=== PATIENT | male | born 1965 | race Caucasian/White ===

== ENCOUNTER 2017-08-03 01:58 | Inpatient (IN) | payer OTHER ==
[2017-08-03] MEDS ORDERED: Zolpidem Tartrate 5 MG TAB PO PRN (05:16)
[2017-08-03] MEDS ORDERED: Loperamide HCl 2 MG CAP PO PRN (05:16)
[2017-08-03] MEDS ORDERED: Ondansetron ODT 4 MG TAB PO PRN (05:16)
[2017-08-03] MEDS ORDERED: Sodium Chloride 0.65% Nasal 44 ML BOT EA NARE PRN (05:16)
[2017-08-03] MEDS ORDERED: Mag-Al 1200 mg/1200 mg/30 ML UDCUP PO PRN (05:16)
[2017-08-03] MEDS ORDERED: Dextrose 50% Abboject 50 ML SYRINGE SLOW IVP PRN (05:16)
[2017-08-03] MEDS ORDERED: Labetalol HCl 100 MG/20 ML VIAL SLOW IVP PRN (05:16)
[2017-08-03] MEDS ORDERED: HumaLOG 300 UNITS/3 ML VIAL SC PRN ×2 (05:16)
[2017-08-03] MEDS ORDERED: Hydrocerin (Eucerin) Cream 120 gm Jar TOP PRN (05:16)
[2017-08-03] MEDS ORDERED: Artificial Tears 18 DROP/0.9 ML EA EYE PRN (05:16)
[2017-08-03] MEDS ORDERED: Senokot 8.6 MG TAB PO PRN (05:16)
[2017-08-03] MEDS ORDERED: Milk Of Magnesia 30 ML UDCUP PO PRN (05:16)
[2017-08-03] MEDS ORDERED: Nitroglycerin 0.4 MG TAB (25 Tab Bottle) SL PRN (05:16)
[2017-08-03] MEDS ORDERED: Ondansetron HCl/PF 4 MG/2 ML Vial IVP PRN (05:16)
[2017-08-03] MEDS ORDERED: HYDROcodone/Acetaminophen 5/325 mg Tablet PO PRN (05:16)
[2017-08-03] MEDS ORDERED: Loratadine 10 MG TAB PO PRN (05:16)
[2017-08-03] MEDS ORDERED: Lorazepam 1 MG TAB PO PRN (05:16)
[2017-08-03] MEDS ORDERED: Dextrose 5% in Water 1,000 ML IV PRN (05:16)
[2017-08-03] MEDS ORDERED: Acetaminophen 325 MG TAB PO PRN (05:16)
[2017-08-03] MEDS ORDERED: Diabetic Tussin 200 MG/10 ML UDCUP PO PRN (05:16)
[2017-08-03] MEDS: Nitroglycerin 2% Ointment 1 INCH/1 GM Packet TOP SCH ×3 (05:52→21:27)
[2017-08-03 07:17] LABS: Troponin I 0.993 ng/mL (< 0.028)
--- NOTE | 2017-08-03 07:24 | HP ---
PRIMARY CARE PHYSICIAN: Dr. Galeano. REASON FOR ADMISSION: Unstable angina (transfer from [facility] emergency room). HISTORY OF PRESENT ILLNESS: A 51-year-old male who has history of diabetes type 2 on metformin therapy, who was transferred from [facility] for chest pain. 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 After that, he walked around, his pain subsided and he went to his home and he slept around 10:00 and all of suddenly he woke up around 11:00 with acute onset of chest pain, which was substernal in location, pressure-like sensation as if somebody seated on his chest. He was feeling nausea and he had episode of vomiting with diaphoresis. He rested in his chair, but his pain was not subsiding and he was feeling more worse and that is why he drove himself to [facility]. At [facility], the patient was given Lopressor 5 mg x3. Lovenox 1 mg per kg IV fluid, aspirin, and subsequently nitroglycerin drip was started. After that, patient was feeling much better. His EKG was unremarkable without any ST elevation, but his troponin was abnormal with indeterminate troponin. This patient was subsequently transferred to our hospital for higher level of care. This patient has significant family history of coronary artery disease. He reports that he was diagnosed with diabetes about a year ago and he was kept on metformin. He also saw his primary care physician recently and he was doing overall well. This patient is not doing any strenuous physical activity. 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 He denies any chest discomfort relation with respiration. He denies any relation of chest pain with food. PAST MEDICAL HISTORY: Diabetes type 2 on metformin therapy, diagnosed in 2015. History of diverticulitis and subsequent perforation required surgery. Benign enlargement of prostate. PAST SURGICAL HISTORY: Diverticulitis with perforation required partial colectomy and colostomy, subsequently colostomy required reanastomosis. The patient also had incisional hernia required repair. The patient also required cystoscopy for catheter-induced trauma. PAST PSYCHIATRIC HISTORY: Anxiety disorder. SOCIAL HISTORY: The patient lives at home in [place]. He has farm house in [place]. He denies any tobacco, alcohol or illicit drug abuse. 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 FAMILY HISTORY: Positive for coronary artery disease. The patient's father from heart attack by age of 62. One brother also had heart attack by age of 60. Cousin brother also had heart attack. Mother also diagnosed with coronary artery disease required CABG by age of 90. CURRENT HOME MEDICATIONS: Metformin and clofran, dose is not known. The patient did not bring his home medication. ALLERGIES: No known drug allergies. EMERGENCY ROOM COURSE: The patient is given Ativan 0.5 mg, Lopressor 5 mg IV push x3, aspirin 324 mg, IV fluid, and Lovenox 1 mg per kg, nitroglycerin drip was started at [facility]. REVIEW OF SYSTEMS: The following complete review of systems was negative, unless otherwise mentioned in the HPI or below: Constitutional: Weight loss or gain, ability to conduct usual activities. Skin: Rash, itching. Eyes: Double vision, pain. ENT/Mouth: Nose bleeding, neck stiffness, pain, tenderness. Cardiovascular: Palpitations, dyspnea on exertion, orthopnea. Respiratory: Shortness of breath, wheezing, cough, hemoptysis, fever or night sweats. Gastrointestinal: Poor appetite, abdominal pain, heartburn, nausea, vomiting, constipation, or diarrhea. Genitourinary: Urgency, frequency, dysuria, nocturia. Musculoskeletal: Pain, swelling. Neurologic/Psychiatric: Anxiety, depression. Allergy/Immunologic: Skin rash, bleeding tendency. Please see my HPI for pertinent positives and negatives. All other review of system reviewed and negative except as mentioned in the HPI. PHYSICAL EXAMINATION: VITAL SIGNS: Currently, blood pressure 141/72, pulse 100, respiratory rate 20, temperature 97.8, saturation 95% on room air, weight 103.4 kilograms. GENERAL: The patient is currently alert, awake, no obvious acute distress. HEENT: Head: Normocephalic, atraumatic. Eyes: Pupils round, reactive to light. Extraocular muscles intact. ENT: Oropharynx within normal limits. Moist mucous membranes. No oral lesions. No pharyngeal erythema, no exudate. NECK: Supple. Range of motion is normal. No meningeal signs of irritation. LUNGS: Clear to auscultation without any rhonchi or rales. CARDIAC: S1, S2 regular without any murmur. ABDOMEN: Soft, bowel sounds present. Surgical scar present. No peritoneal sign, no guarding, no rigidity, no rebound. BACK EXAMINATION: Unremarkable, no CVA tenderness. EXTREMITIES: Upper extremities: Passive movement of all joints are normal. Lower extremities: No edema. Good peripheral pulsation. No calf tenderness. PSYCHIATRIC: Normal affect. SKIN: No skin rash. NEUROLOGIC: Nonfocal examination. HEMATOLOGIC SYSTEM: No lymphadenopathy. SIGNIFICANT LABS: EKG based on my review, sinus tachycardia, nonspecific ST-T changes. Chest x-ray based on my review, no acute cardiopulmonary process. CBC: WBC 9.7, hemoglobin 18.5, platelets 160. BMP: Sodium 143, potassium 4.0 , chloride 109, carbon dioxide 20, BUN 22, creatinine 0.94, glucose 140, calcium 9.5. LFT: AST 19, ALT 30, alkaline phosphatase 61, albumin 4.5, lipase 79, CK-MB 2.2, troponin I 0.079. ASSESSMENT AND PLAN: 1. Unstable angina. This patient has underlying risk factors for coronary artery disease, his age, family history and diabetes type 2. He has unknown cholesterol status and he has new hypertension as well. He had chest pain 2 times 2 hours apart, first episode lasted for about 10 minutes and second episode associated with diaphoresis, nausea, vomiting, and heaviness. He has nonspecific ST-T changes and he has elevated troponin. Based on all of these criteria, the patient has very high risk status. He has a high MANUEL score. At this point, the patient clinically meets unstable angina criteria. We will keep this patient on telemetry floor. We will continue to treat him with Lovenox 1 mg per kg subcu twice daily. We will obtain echocardiography. We will consult Cardiology. This patient may need cardiac catheterization. We will monitor on telemetry floor. We will continue aspirin 325 mg p.o. daily, metoprolol 25 mg p.o. twice daily, lisinopril 5 mg p.o. daily, Lipitor 40 mg p.o. at bedtime. We will check lipid profile for risk stratification. We will also check hemoglobin A1c. 2. Diabetes type 2. Check hemoglobin A1c and continue with insulin as per sliding scale protocol. We will hold on metformin therapy. 3. Obesity. Dietary education given, weight loss education given. 4. History of benign enlargement of prostate. The patient is not on any specific treatment at this point. 5. Deep venous thrombosis prophylaxis. The patient is already on full dose of Lovenox therapy. 6. Gastrointestinal prophylaxis. Pepcid 20 mg p.o. b.i.d. 7. Code status: The patient is FULL CODE. The patient does not have a surrogate decision maker. Disposition plan based on clinical course. We are expecting patient's stay in the hospital more than 2 midnights. Plan of care discussed with the patient in detail. MTDD
[2017-08-03] MEDS ORDERED: Enoxaparin Sodium 100 MG/ML SYRINGE SC SCH ×2 (09:00→21:00)
[2017-08-03 09:38] LABS: Hematocrit 47.3 % (42.0-52.0)
[2017-08-03] MEDS ORDERED: Communication Order-Pharmacy FS SCH ×2 (10:15→20:15)
--- NOTE | 2017-08-03 10:30 | CON ---
DATE OF CONSULTATION: 08/03/2017 DATE OF ADMISSION: 08/03/2017 CARDIOLOGY CONSULTATION INDICATION FOR CONSULTATION: A 51-year-old patient with a non-ST segment elevation myocardial infar ction. HISTORY OF PRESENT ILLNESS: This is a very pleasant 51-year-old gentleman with no history of previo us cardiac disease, does have a history of diabetes which was diagnosed about a year ago. He has be en on metformin therapy and diet control. He has been doing quite well. His hemoglobin A1c has bee n under good control. He was out yesterday some time shooting for wild hogs. After he shot the [employer], he started developing chest pain. It lasted about 10 minutes. He went home. He was soon not quite himself. He then went to bed around 10:00 and he woke up around 11:00 with chest pain which h e described as feeling heavy pressure radiating to the jaw. He became diaphoretic, had some nausea and vomiting. He presented to the emergency room. EKG showed some nonspecific changes with T-wave abnormalities in the lateral leads with ST segment depression, no ST segment elevation was noted. H is cardiac enzymes were indeterminate, but originally was 1.036, now increased up to 0.993. His ad[address] st pain is gone. He is feeling much better. The EKG has improved. In the emergency room, he was g iven Lopressor, aspirin and Lovenox. He also was given Ativan and he was transferred to our [facility] for further evaluation and treatment. He remained stable. His vital signs are stable and he has no chest pain at this time. PAST MEDICAL HISTORY: Significant for type 2 diabetes as noted above. He is on metformin and diet control. He had a history of diverticulitis and multiple surgeries due to perforation. He has had hernia repairs. He has had a history of anxiety, history of benign prostatic hypertrophy. He has h ad cystoscopy and nephrolithiasis. He has also had lithotripsy. He has a history of anxiety. SOCIAL HISTORY: He lives in [place] usually. 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 He denies any alcohol or tobacco abuse. 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 ALLERGIES: He has no known drug allergies. MEDICATIONS: Prior to admission included metformin 500 mg b.i.d., atorvastatin 40 mg daily, and cora nazepam 1 mg b.i.d., aspirin, Lipitor, Lovenox, Pepcid, metoprolol, and nitroglycerin paste. REVIEW OF SYSTEMS: A 12-point review of systems is unremarkable except what is noted in the history of present illness. He denies any HEENT complaints, visual changes or hearing loss. He had no pul monary complaints such as asthma, emphysema or bronchitis. No recent coughs, cold, or pneumonia. G ASTROINTESTINAL: He denies any significant nausea, vomiting or diarrhea. He only had some nausea a nd vomiting earlier this morning and last night with his associated chest discomfort, no hematemesis . He has not noticed any blood in stool. : Denies any dysuria, polyuria, or hematuria. MUSCULO SKELETAL: No complaints of claudication type symptoms or edema. NEUROLOGIC: No history of seizure s or syncope. PHYSICAL EXAMINATION: GENERAL: Reveals a well-developed, well-nourished gentleman. VITAL SIGNS: Blood pressure is 102/56, heart rate 85 and regular. He is afebrile, respiratory rate 16, O2 saturation 96%. HEENT: Shows head to be normocephalic and atraumatic. Carotid pulses are present. There were no b ruits. No JVD. The thyroid is not enlarged. Oral mucosa was pink and moist. CHEST: Clear to auscultation. There were no rales, rhonchi or wheezing noted. CARDIOVASCULAR: Reveals a regular rate and rhythm with normal S1, S2, no S3, S4. There were no sig nificant murmurs, heaves, thrills, bruits or rubs noted. ABDOMEN: Obese with positive bowel sounds and well-healed surgical incisions. There is no palpable masses or tenderness. Femoral pulses are present. EXTREMITIES: Showed no clubbing, cyanosis or edema. Pedal pulses are also present. NEUROLOGIC: The patient appears to be intact. SKIN: Warm and dry. LABORATORY DATA: As noted above, troponin I last checked was 0.993 with MB of 8.3 compatible with a non-ST segment elevation myocardial infarction. Creatinine 0.94, hemoglobin 18.5. IMPRESSION AND PLAN: 1. Non-ST segment elevation myocardial infarction. Given the patient's history and risk factors, E KG changes and positive enzymes, he will be advised to undergo cardiac catheterization. I did expla in the procedure and the risks to him to include bleeding, infection, possibly a myocardial infarcti on, cerebrovascular accident, renal insufficiency, allergic contrast reaction, and the possibility o f . He understands and agrees to proceed. We will plan for cardiac catheterization tomorrow u nless the patient becomes unstable today. 2. Diabetes. This appears to be under relatively good control at this time and he will continue hi s metformin. We will hold this after the cardiac catheterization tomorrow or may hold tonight also to decrease the risk of contrast nephropathy associated with his diabetes. 3. History of anxiety, he will continue his present medications with Ativan as needed. 4. Hypercholesterolemia. He will continue on his Lipitor.
[2017-08-03] MEDS: Aspirin 325 MG TAB PO SCH (11:20)
[2017-08-03] MEDS: Metoprolol Tartrate 25 MG TAB PO SCH ×2 (11:20→21:25)
[2017-08-03] MEDS: Famotidine 20 MG TAB PO SCH ×2 (11:20→21:25)
--- NOTE | 2017-08-03 12:05 | PDOC.PN ---
- Subjective Encounter Start Date: 08/03/17 Encounter Start Time: 09:20 Pt seen for followup re: NSTEMI. Denies chest pain, shortness of breath, fevers or chills. - Objective Resuscitation Status: Resuscitation Status FULL:Full Resuscitation MAR Reviewed: Yes Vital Signs & Weight: Vital Signs (12 hours) Temp Pulse Resp BP Pulse Ox 08/03/17 11:22 97.5 F L 85 16 105/68 96 08/03/17 08:00 97.5 F L 85 16 102/56 L 96 08/03/17 05:16 96.3 F L 90 20 97 08/03/17 05:06 96.3 F L 90 20 142/76 H 97 Weight Weight 227 lb 11.2 oz I&O: 08/02/17 08/03/17 08/04/17 06:59 06:59 06:59 Intake Total 360 Balance 360 Result Diagrams: 08/03/17 06:17 08/03/17 03:13 Additional Labs: Accuchecks 08/03/17 08/03/17 10:36 05:57 POC Glucose 116 H 104 EKG Reviewed by me: Yes (Tele: enmanuel lacey) Phys Exam - Physical Examination Constitutional: NAD HEENT: moist MMs, oral pharynx no lesions Neck: supple, full ROM Respiratory: no wheezing, no rales, no rhonchi, clear to auscultation bilateral Cardiovascular: RRR, no rub Gastrointestinal: soft, non-tender, no distention, positive bowel sounds Musculoskeletal: no edema, pulses present Neurological: non-focal, normal sensation, moves all 4 limbs Lymphatic: no nodes Psychiatric: normal affect, A&O x 3 Skin: no rash, normal turgor, cap refill <2 seconds Dx/Plan (1) NSTEMI (non-ST elevated myocardial infarction) Code(s): I21.4 - NON-ST ELEVATION (NSTEMI) MYOCARDIAL INFARCTION Status: Acute (2) DM2 (diabetes mellitus, type 2) Status: Chronic (3) Dyslipidemia Code(s): E78.5 - HYPERLIPIDEMIA, UNSPECIFIED Status: Chronic (4) Anxiety disorder Code(s): F41.9 - ANXIETY DISORDER, UNSPECIFIED Status: Chronic (5) BPH (benign prostatic hyperplasia) Code(s): N40.0 - BENIGN PROSTATIC HYPERPLASIA WITHOUT LOWER URINRY TRACT SYMP Status: Chronic - Plan DVT proph w/lovenox * .Continue Lovenox. For cath tomorrow. Hold metformin. Continue insulin sliding scale, statin. Review of Systems - Review of Systems Constitutional: negative: Fever, Chills, Sweats, Weakness, Malaise Respiratory: negative: Cough, Dry, Shortness of Breath, Hemoptysis, SOB with Excertion, Pleuritic Pain, Sputum, Wheezing Cardiovascular: negative: Chest Pain, Palpitations, Orthopnea, Paroxysmal Noc. Dyspnea, Edema, Light Headedness Gastrointestinal: negative: Nausea, Vomiting, Abdominal Pain, Diarrhea, Constipation, Melena, Hematochezia Genitourinary: negative: Dysuria, Frequency, Incontinence, Hematuria, Retention - Medications/Allergies Allergies/Adverse Reactions: Allergies Allergy/AdvReac Type Severity Reaction Status Date / Time No Known Drug Allergies Allergy Verified 08/03/17 05:28 Medications: Current Medications Acetaminophen (Tylenol) 650 mg PO Q4H PRN PRN Reason: Headache/Fever or Pain Hydrocodone Bitart/Acetaminophen ([place] 5/325) 1 tab PO Q4H PRN PRN Reason: Moderate Pain (4-6) Al Hydroxide/Mg Hydroxide (Maalox) 30 ml PO Q6H PRN PRN Reason: Heartburn or Indigestion Artificial Tears (Tears Naturale) 0 drop EA EYE PRN PRN PRN Reason: Dry Eyes Aspirin (Aspirin) 325 mg PO QAM-[facility] Last Admin: 08/03/17 11:20 Dose: 325 mg Atorvastatin Calcium (Lipitor) 40 mg PO HS [facility] Dextrose/Water (Dextrose 50%) 25 gm SLOW IVP PRN PRN PRN Reason: Hypoglycemia Emollient Cream (Hydrocerin Cream) 0 gm TOP BIDPRN PRN PRN Reason: Dry Skin Enoxaparin Sodium (Lovenox) 100 mg SC 0900,2100 [facility] Stop: 08/03/17 23:00 Famotidine (Pepcid) 20 mg PO BID [facility] Last Admin: 08/03/17 11:20 Dose: 20 mg Glucagon (Glucagon) 1 mg IM PRN PRN PRN Reason: Hypoglycemia Guaifenesin (Robitussin Sf) 200 mg PO Q4H PRN PRN Reason: Cough Dextrose/Water (D5w) 1,000 mls @ 0 mls/hr IV .Q0M PRN; As Directed PRN Reason: Hypoglycemia Insulin Human Lispro (Humalog) 0 units SC .MODERATE SLIDING SC PRN PRN Reason: Moderate Correctional Scale Insulin Human Lispro (Humalog) 0 units SC .BEDTIME SLIDING SC PRN PRN Reason: Bedtime Correctional Scale Labetalol HCl (Normodyne) 20 mg SLOW IVP Q4H PRN PRN Reason: Systolic BP > 180 Loperamide HCl (Imodium) 2 mg PO PRN PRN PRN Reason: Diarrhea/Loose Stools Loratadine (Claritin) 10 mg PO DAILYPRN PRN PRN Reason: Sinus Symptoms Lorazepam (Ativan) 1 mg PO Q4H PRN PRN Reason: Anxiety/Agitation Magnesium Hydroxide (Milk Of Magnesium) 30 ml PO DAILYPRN PRN PRN Reason: Constipation Metoprolol Tartrate (Lopressor) 25 mg PO BID [facility] Last Admin: 08/03/17 11:20 Dose: 25 mg Nitroglycerin (Nitro-Bid 2% Ointment) 0.5 inch TOP Q8HR [facility] Last Admin: 08/03/17 05:52 Dose: Not Given Nitroglycerin (Nitrostat) 0.4 mg SL Q5MIN PRN PRN Reason: Chest Pain Ondansetron HCl (Zofran Odt) 4 mg PO Q6H PRN PRN Reason: Nausea/Vomiting Ondansetron HCl (Zofran) 4 mg IVP Q6H PRN PRN Reason: Nausea/Vomiting Senna (Senokot) 2 tab PO HSPRN PRN PRN Reason: Constipation Sodium Chloride ([place] Nasal [place] 0.65%) 0 ml EA NARE QIDPRN PRN PRN Reason: Nasal Congestion Zolpidem Tartrate (Ambien) 5 mg PO HSPRN PRN PRN Reason: Insomnia
[2017-08-03] MEDS: Atorvastatin Calcium 40 MG TAB PO SCH (21:25)
[2017-08-04 05:12] LABS: #Eosinphils 0.1 thou/uL (0.0-0.7); #Lymphocytes 1.7 thou/uL (1.20-3.40); #Monocytes 0.7 thou/uL (0.11-0.59); #Neutrophils 4.6 thou/uL (1.40-6.50); %Basophils 0.7 % (0.0-1.0); %Eosinophils 0.9 % (0.0-10.0); %Lymphocytes 23.6 % (21.0-51.0); %Monocytes 10.1 % (0.0-10.0); Hematocrit 48.8 % (42.0-52.0); Mean Platelet Volume 7.8 fL (7.4-10.4); White Blood Cell (WBC) Count 7.1 thou/uL (4.8-10.8)
[2017-08-04 05:24] LABS: ALT (SGPT) 24 U/L (8-55); AST (SGOT) 28 U/L (5-34); Alkaline Phosphatase 49 U/L (40-150); Anion Gap 12 mmol/L (10-20); BUN (Urea Nitrogen) 13 mg/dL (8.9-20.6); Bilirubin, Total 0.7 mg/dL (0.2-1.2); Calc. Creatinine Clearance 187 mL/min (70-130); Calcium 9.1 mg/dL (7.8-10.44); Carbon Dioxide 24 mmol/L (22-29); Chloride 108 mmol/L (98-107); Cholesterol 160 mg/dl (< 200 Desired); Estimated GFR-MDRD Greater than 90; Globulin 2.9 g/dL (2.4-3.5); LDL Cholesterol, Calculated 94 mg/dL; Protein, Total 6.7 g/dL (6.0-8.3)
[2017-08-04] MEDS: Aspirin 325 MG TAB PO SCH (06:19)
[2017-08-04] MEDS: Famotidine 20 MG TAB PO SCH ×2 (06:19→21:01)
[2017-08-04] MEDS: Nitroglycerin 2% Ointment 1 INCH/1 GM Packet TOP SCH ×3 (06:19→21:01)
[2017-08-04] MEDS: Metoprolol Tartrate 25 MG TAB PO SCH ×2 (06:19→21:01)
[2017-08-04] MEDS ORDERED: Nitroglycerin 100MG/250ML BOT 250 ML ONE (08:07)
[2017-08-04] MEDS ORDERED: Heparin 10,000 UNITS/1 ML VIAL ONE (08:07)
[2017-08-04] MEDS ORDERED: Fentanyl 100 MCG/2 ML VIAL ONE (08:36)
[2017-08-04] MEDS ORDERED: traMADol HCl 50 MG TAB PO PRN (09:38)
[2017-08-04] MEDS ORDERED: Nitroglycerin 0.4 MG TAB (25 Tab Bottle) SL PRN (09:38)
[2017-08-04] MEDS ORDERED: Acetaminophen/Codeine 30-300mg Tablet PO PRN ×2 (09:38)
[2017-08-04] MEDS ORDERED: Sodium Chloride 0.9% 200 ML IV SCH (09:45)
[2017-08-04] MEDS ORDERED: Communication Order-Pharmacy FS SCH (11:17)
[2017-08-04] MEDS ORDERED: Diazepam 5 MG TAB PO PRN (11:17)
--- NOTE | 2017-08-04 11:34 | PDOC.PN ---
- Subjective Encounter Start Date: 08/04/17 Encounter Start Time: 11:00 Pt seen for followup re: NSTEMI. Denies chest pain or shortness of breath. No fevers or chills. Had cath earlier today. - Objective Resuscitation Status: Resuscitation Status FULL:Full Resuscitation MAR Reviewed: Yes Vital Signs & Weight: Vital Signs (12 hours) Temp Pulse Resp BP Pulse Ox 08/04/17 06:55 96.4 F L 81 15 121/63 97 08/04/17 04:00 97.4 F L 77 20 102/64 95 Weight Weight 224 lb 11.2 oz I&O: 08/03/17 08/04/17 08/05/17 06:59 06:59 06:59 Intake Total 360 1280 Output Total 1275 Balance 360 5 Result Diagrams: 08/04/17 04:26 08/04/17 04:26 Additional Labs: Accuchecks 08/04/17 08/03/17 08/03/17 05:53 20:38 16:50 POC Glucose 112 H 119 H 100 EKG Reviewed by me: Yes (Tele; NSR) Phys Exam - Physical Examination Constitutional: NAD HEENT: moist MMs Neck: supple Respiratory: clear to auscultation bilateral Cardiovascular: RRR Musculoskeletal: pulses present Neurological: moves all 4 limbs Psychiatric: normal affect Skin: no rash Dx/Plan (1) NSTEMI (non-ST elevated myocardial infarction) Code(s): I21.4 - NON-ST ELEVATION (NSTEMI) MYOCARDIAL INFARCTION Status: Acute (2) DM2 (diabetes mellitus, type 2) Status: Chronic (3) Dyslipidemia Code(s): E78.5 - HYPERLIPIDEMIA, UNSPECIFIED Status: Chronic (4) Anxiety disorder Code(s): F41.9 - ANXIETY DISORDER, UNSPECIFIED Status: Chronic (5) BPH (benign prostatic hyperplasia) Code(s): N40.0 - BENIGN PROSTATIC HYPERPLASIA WITHOUT LOWER URINRY TRACT SYMP Status: Chronic - Plan * . Pt has multivessel CAD, for urgent CABG. Continue insulin sliding scale. Continue statin. Review of Systems - Review of Systems Constitutional: negative: Fever, Chills, Sweats, Weakness, Malaise Respiratory: negative: Cough, Dry, Shortness of Breath, Hemoptysis, SOB with Excertion, Pleuritic Pain, Sputum, Wheezing Cardiovascular: negative: Chest Pain, Palpitations, Orthopnea, Paroxysmal Noc. Dyspnea, Edema, Light Headedness - Medications/Allergies Allergies/Adverse Reactions: Allergies Allergy/AdvReac Type Severity Reaction Status Date / Time No Known Drug Allergies Allergy Verified 08/03/17 05:28 Medications: Current Medications Acetaminophen (Tylenol) 650 mg PO Q4H PRN PRN Reason: Headache/Fever or Pain Acetaminophen/Codeine Phosphate (Tylenol #3) 1 tab PO Q4H PRN PRN Reason: Mild Pain (1-3) Acetaminophen/Codeine Phosphate (Tylenol #3) 2 tab PO Q4H PRN PRN Reason: Moderate Pain (4-6) Hydrocodone Bitart/Acetaminophen ([place] 5/325) 1 tab PO Q4H PRN PRN Reason: Moderate Pain (4-6) Al Hydroxide/Mg Hydroxide (Maalox) 30 ml PO Q6H PRN PRN Reason: Heartburn or Indigestion Artificial Tears (Tears Naturale) 0 drop EA EYE PRN PRN PRN Reason: Dry Eyes Aspirin (Aspirin) 325 mg PO QAM-[facility] Last Admin: 08/04/17 06:19 Dose: 325 mg Atorvastatin Calcium (Lipitor) 40 mg PO HS [facility] Last Admin: 08/03/17 21:25 Dose: 40 mg Dextrose/Water (Dextrose 50%) 25 gm SLOW IVP PRN PRN PRN Reason: Hypoglycemia Diazepam (Valium) 5 mg PO HSPRN PRN PRN Reason: Insomnia Emollient Cream (Hydrocerin Cream) 0 gm TOP BIDPRN PRN PRN Reason: Dry Skin Famotidine (Pepcid) 20 mg PO BID [facility] Last Admin: 08/04/17 06:19 Dose: 20 mg Glucagon (Glucagon) 1 mg IM PRN PRN PRN Reason: Hypoglycemia Guaifenesin (Robitussin Sf) 200 mg PO Q4H PRN PRN Reason: Cough Dextrose/Water (D5w) 1,000 mls @ 0 mls/hr IV .Q0M PRN; As Directed PRN Reason: Hypoglycemia Sodium Chloride (Normal Saline 0.9%) 200 mls @ 0 mls/hr IV 0945 [facility] PRN Reason: As Directed Stop: 08/04/17 12:00 Last Admin: 08/04/17 10:46 Dose: Not Given Insulin Human Lispro (Humalog) 0 units SC .MODERATE SLIDING SC PRN PRN Reason: Moderate Correctional Scale Insulin Human Lispro (Humalog) 0 units SC .BEDTIME SLIDING SC PRN PRN Reason: Bedtime Correctional Scale Labetalol HCl (Normodyne) 20 mg SLOW IVP Q4H PRN PRN Reason: Systolic BP > 180 Loperamide HCl (Imodium) 2 mg PO PRN PRN PRN Reason: Diarrhea/Loose Stools Loratadine (Claritin) 10 mg PO DAILYPRN PRN PRN Reason: Sinus Symptoms Lorazepam (Ativan) 1 mg PO Q4H PRN PRN Reason: Anxiety/Agitation Magnesium Hydroxide (Milk Of Magnesium) 30 ml PO DAILYPRN PRN PRN Reason: Constipation Metoprolol Tartrate (Lopressor) 25 mg PO BID [facility] Last Admin: 08/04/17 06:19 Dose: 25 mg Miscellaneous Information (Communication Order-Pharmacy) 1 each FS ONE ONE Stop: 08/04/17 11:18 Nitroglycerin (Nitro-Bid 2% Ointment) 0.5 inch TOP Q8HR [facility] Last Admin: 08/04/17 06:19 Dose: 0.5 inch Nitroglycerin (Nitrostat) 0.4 mg SL Q5MIN PRN PRN Reason: Chest Pain Nitroglycerin (Nitrostat) 0.4 mg SL Q5MIN PRN PRN Reason: Chest Pain Ondansetron HCl (Zofran Odt) 4 mg PO Q6H PRN PRN Reason: Nausea/Vomiting Ondansetron HCl (Zofran) 4 mg IVP Q6H PRN PRN Reason: Nausea/Vomiting Senna (Senokot) 2 tab PO HSPRN PRN PRN Reason: Constipation Sodium Chloride ([place] Nas[place] 0.65%) 0 ml EA NARE QIDPRN PRN PRN Reason: Nasal Congestion Tramadol HCl ([place]am) 50 mg PO Q6H PRN PRN Reason: Moderate Pain (4-6) Zolpidem Tartrate (Ambien) 5 mg PO HSPRN PRN PRN Reason: Insomnia
--- NOTE | 2017-08-04 14:19 | CON ---
DATE OF CONSULTATION: 08/04/2017 REASON FOR CONSULTATION: Evaluate patient for coronary artery bypass grafting. HISTORY OF PRESENT ILLNESS: Mr. Kim is a 51-year-old male who was admitted to the hospital on . He was awakened with chest pain. He has been diagnosed as a diabetic as of approximately a ye ar ago and states that his A1c has been well controlled with a 60-pound weight loss and metformin. He has never had chest pain like this in the past. He has no personal history of coronary artery di sease. He has an extensive family history of coronary artery disease. He does not use tobacco. Th is pain was accompanied with diaphoresis and jaw pain. He has had no pain since being admitted to [facility]. The patient underwent coronary angiography today, which has shown severe 3-vessel disease. Ejection fraction is approximately 40%. I have been asked to see him to discuss coronary artery bypass graf villatoro. PAST MEDICAL HISTORY: 1. Diabetes mellitus. 2. History of diverticulitis with rupture requiring colectomy and colostomy. 3. Benign prostatic hypertrophy. 4. Anxiety. 5. Hypertension. 6. Hyperlipidemia. PAST SURGICAL HISTORY: 1. Abdominal exploration with partial colectomy and colostomy. 2. Colostomy reversal. 3. Abdominal hernia repair. 4. Cystoscopy. 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 He does not use tobacco or alcohol. ALLERGIES: None. MEDICATIONS: 1. Metformin 500 mg b.i.d. 2. Atorvastatin 40 mg q. day. 3. Clonazepam 1 mg b.i.d. 4. Aspirin 81 mg q. day. REVIEW OF SYSTEMS: Ten-point review of systems performed and is negative except as above. PHYSICAL EXAMINATION: GENERAL: This is a well-developed, well-nourished male in no acute distress. VITAL SIGNS: Height 5 feet 9 inches, weight is 224 pounds, BSA is 2.23, temperature is 96.4, pulse is 81 and regular, blood pressure is 121/63. HEENT: Sclerae nonicteric. Pupils are equal and round bilaterally. NECK: Supple, without carotid bruit. CHEST: Clear bilaterally. HEART: Rhythm is regular, without murmur. ABDOMEN: Soft and nontender, moderately obese, scars are well healed nicely. EXTREMITIES: No cyanosis, clubbing or edema. VASCULAR: Palpable carotid, radial, femoral and dorsalis pedis pulses bilaterally. VENOUS: There are no venous varicosities or venous stasis changes. The patient was cast through hi s right radial and the patient is left handed. LABORATORY DATA: Hemoglobin is 15.9 and platelet count is 134,000. Potassium is 3.7 and creatinine is 0.69. ASSESSMENT AND PLAN: This is a very pleasant 51-year-old gentleman with critical 3-vessel disease a nd slightly diminished left ventricular function. Risks, benefits and options to coronary artery by pass grafting have been described to the patient and he is agreeable to proceed with surgery tomorro w.
--- NOTE | 2017-08-04 15:04 | RAD ---
CHEST TWO VIEWS: History: Pre-CABG. Comparison: 08-02-17 FINDINGS: Heart size upper limits of normal. No pneumothorax or effusion. No focal airspace opacity. Prominent epicardial fat. Mild spondylosis in the thoracic spine. IMPRESSION: Mild cardiomegaly. POS: OFF
[2017-08-04] MEDS ORDERED: Iopamidol 370 76% 100 ML VIAL ONE (15:19)
[2017-08-04] MEDS: Atorvastatin Calcium 40 MG TAB PO SCH (21:01)
[2017-08-05] MEDS: Metoprolol Tartrate 25 MG TAB PO SCH (05:46)
[2017-08-05] MEDS: Nitroglycerin 2% Ointment 1 INCH/1 GM Packet TOP SCH (05:47)
[2017-08-05] MEDS ORDERED: Heparin 10,000 UNITS/1 ML VIAL 30,000 UNITS in Sodium Chloride 0.9% 1,000 ML FS SCH (06:45)
[2017-08-05] MEDS ORDERED: Midazolam HCl 2 mg/2 ml Vial ONE (06:57)
[2017-08-05] MEDS ORDERED: Fentanyl 250 MCG/5 ML VIAL ONE (07:13)
[2017-08-05] MEDS ORDERED: Midazolam HCl 5 mg/5 ml Vial ONE (07:13)
[2017-08-05] MEDS ORDERED: Lidocaine 2% PF 10 ML AMP (For Epidural Use) ONE (07:38)
[2017-08-05] MEDS ORDERED: Vecuronium 10 MG VIAL ONE (07:38)
[2017-08-05] MEDS ORDERED: Propofol 200 MG/20 ML VIAL ONE (07:38)
[2017-08-05] MEDS ORDERED: Milrinone 10 MG/10 ML VIAL ONE (07:55)
[2017-08-05] MEDS ORDERED: Norepinephrine 8 MG/0.9% NS 250 ML ONE (09:01)
[2017-08-05] MEDS ORDERED: Insulin Regular 300 UNITS/3 ML VIAL ONE (11:03)
[2017-08-05] MEDS ORDERED: Rocuronium Bromide 50 MG/5 ML VIAL ONE (11:27)
[2017-08-05] MEDS: Famotidine 20 MG TAB PO SCH (11:51)
[2017-08-05] MEDS: Aspirin 325 MG TAB PO SCH (11:51)
[2017-08-05] MEDS ORDERED: Bisacodyl 10 MG SUPP PR PRN (12:24)
[2017-08-05] MEDS ORDERED: Promethazine HCl 25 MG/ML VIAL IM PRN (12:24)
[2017-08-05] MEDS ORDERED: Bisacodyl 5 MG TAB PO PRN (12:24)
[2017-08-05] MEDS ORDERED: Post-Op Insulin Drip Protocol IVPB ONE (12:24)
[2017-08-05] MEDS ORDERED: Norepinephrine 8 MG/0.9% NS 250 ML IVPB PRN (12:24)
[2017-08-05] MEDS ORDERED: Morphine Sulfate 2 MG/ML SYRINGE SLOW IVP PRN (12:24)
[2017-08-05] MEDS ORDERED: Fentanyl 100 MCG/2 ML VIAL SLOW IVP PRN ×2 (12:24)
[2017-08-05] MEDS ORDERED: Acetaminophen 325 MG TAB PO PRN (12:24)
[2017-08-05] MEDS ORDERED: Guaifenesin DM 100-10/5 ML UDCUP PO PRN (12:24)
[2017-08-05] MEDS ORDERED: Nitroglycerin 50 MG/250 ML BOT 250 ML IVPB PRN (12:24)
[2017-08-05] MEDS ORDERED: Mag-Al 1200 mg/1200 mg/30 ML UDCUP PO PRN (12:24)
[2017-08-05] MEDS ORDERED: Magnesium 2 GM/NS 0.9% 100 ML 2 GM in Premix Bag 1 BAG IVPB SCH (12:30)
[2017-08-05] MEDS ORDERED: D5 1/2 NS w/20 mEq KCL 1,000 ML IV SCH (12:30)
[2017-08-05] MEDS ORDERED: Dextrose 50% Abboject 50 ML SYRINGE SLOW IVP PRN (12:33)
[2017-08-05] MEDS ORDERED: Dextrose 5% in Water 1,000 ML IV PRN (12:33)
[2017-08-05] MEDS ORDERED: Insulin Regular 300 UNITS/3 ML VIAL SC PRN (12:33)
[2017-08-05 12:55] LABS: Hematocrit 47.4 % (42.0-52.0); Mean Platelet Volume 7.2 fL (7.4-10.4); Red Blood Cell (RBC) Count 4.95 mill/uL (4.70-6.10); White Blood Cell (WBC) Count 21.2 thou/uL (4.8-10.8)
[2017-08-05 12:58] LABS: PTT 31.4 SEC (22.9-36.1); Prothrombin Time 16.3 SEC (12.0-14.7)
[2017-08-05] MEDS ORDERED: Ketorolac Tromethamine 30 MG/ML VIAL IVP SCH (13:00)
[2017-08-05 13:04] LABS: Oxyhemoglobin 93.9 % (94.0-97.0); Sodium 143 mmol/L (135-148)
[2017-08-05 13:05] LABS: Mechanical Tidal Volume 550 ml; Mode SIMV.PSV; Modified Allen's Test NOT DONE; Pressure Support 10 cmH2O; Vent YES
[2017-08-05 13:11] LABS: Band 56 % (5-11); Myelocyte 2 % (0-0); Neutrophil 15 % (42-75)
[2017-08-05 13:16] LABS: Anion Gap 11 mmol/L (10-20); BUN (Urea Nitrogen) 14 mg/dL (8.9-20.6); Calc. Creatinine Clearance 175 mL/min (70-130); Calcium 7.8 mg/dL (7.8-10.44); Carbon Dioxide 21 mmol/L (22-29); Chloride 114 mmol/L (98-107); Estimated GFR-MDRD Greater than 90
--- NOTE | 2017-08-05 13:28 | PDOC.CTH ---
Cardiology Progress Note - Subjective The pt was seen and examined. S/p CABG today by Dr Shirley. Response to only pain stimulation only due to under vent sedation. VS stable - Objective Vital Signs Temp Pulse Resp BP BP Pulse Ox 08/05/17 12:37 91 146/77 H 08/05/17 04:00 97.8 F 81 18 117/62 94 L Weight 220 lb 3.2 oz 08/04/17 08/05/17 08/06/17 06:59 06:59 06:59 Intake Total 1280 1076 Output Total 1275 1400 Balance 5 -324 - Physical Examination General/Neuro: other: (on vent with sedation) Neck: no JVD present Lungs: CTA (coarse and diminished at bases) Heart: RRR Abdomen: soft, other: (very slow BS) Extremities: other: (No edema; 2+ pulses) - Telemetry Telemetry Rhythm: SR - Labs Result Diagrams: 08/05/17 12:44 08/05/17 12:44 Troponin/CKMB CK-MB (CK-2) 8.3 ng/mL (0-6.6) H* 08/03/17 03:14 Troponin I 0.993 ng/mL (< 0.028) H* 08/03/17 06:18 - Assessment/Plan 1. 3V CAD with s/p CABG on 08/05/17 - stable; on ASA, Statin, Metoprolol 2. HTN - well controlled with current medication; 3. dyslipidemia - on Statin medication 4. DM type 2 - on ACHS BG check with insulin sliding scale. 5. Anxiety - on Vent with sedation at this time MAR reviewed
[2017-08-05] MEDS: Potassium Chloride 20 MEQ/100 ML PREMIX BAG IVPB PRN (14:09)
--- NOTE | 2017-08-05 14:20 | OP ---
DATE OF OPERATION: 08/05/2017 PREOPERATIVE DIAGNOSES: Coronary artery disease/diabetes mellitus/hypertension/hyperlipidemia. POSTOPERATIVE DIAGNOSES: Coronary artery disease/diabetes mellitus/hypertension/hyperlipidemia. PROCEDURES PERFORMED: Coronary artery bypass grafting x5: 1. Left internal mammary artery to 1.0 mm distal LAD -- good conduit and small friable target -- th is is not a redo target. 2. Reversed saphenous vein to 1.0 mm posterolateral branch -- good conduit and small target -- this is not a redo target. 3. Reversed saphenous vein to 0.8 mm diagonal -- good conduit and small target -- this is not a red o target. 4. Reversed saphenous vein to 2.5 mm ramus -- good conduit and target. 5. Reverse saphenous vein to 1.5 mm RCA -- good conduit and small heavily calcified target -- this is not a redo target. Note, there was no bypassable OM target. SURGEON: Main Shirley M.D. and Jim Jacobsen M.D. ANESTHESIA: General endotracheal -- Dr. Alberto Ladd. PUMP TIME: 105 minutes. CROSS-CLAMP TIME: 67 minutes LOW CORE TEMPERATURE: 32 degrees Celsius. MANAGER GLOBAL: Briana West. DRAINS: 24-Slovenian chest tubes x2. DRIPS: Levophed at 6 mcg/kilo per minute. TRANSFUSIONS: None. PROCEDURE IN DETAIL: After consent was obtained, the patient was brought to the operating room and placed in the supine position on the operating room table. Appropriate anesthetic monitor was place d and general endotracheal anesthesia induced. Chest, abdomen, and legs were prepped and draped in usual sterile fashion. Left greater saphenous vein was harvested with an endoscopic technique. The right greater saphenous vein was harvested from the thigh utilizing a skip incision technique. Wou nds were irrigated and closed in layers. Median sternotomy was performed. Left internal mammary ar marty was harvested as a pedicle graft. The patient was systemically heparinized. Distal pedicle wa s divided and infused with papaverine. Thymic fat and pericardium were divided with electrocautery. Pericardial stay sutures were placed. Aortic and atrial cannulation was performed. The aorta was very short. An arch cannula was used in the distal ascending aorta. Retrograde prime was performe d and the patient was placed on cardiopulmonary bypass after adequate heparinization. Distal target s were marked. Aortic cross-clamp was applied and antegrade sanguinous cardioplegic arrest obtained . A 1200 mL of [place] cold cardioplegia was given. Topical cold solution was used. Reversed sap henous vein was anastomosed to the posterolateral branch end-to-side fashion with running 7-0 Prolen e suture. Reversed saphenous vein was anastomosed to the distal right coronary artery in end-to-christian e fashion with running 7-0 Prolene suture. Both anastomoses were tested and were hemostatic. The O M territory was inspected and there was no bypassable target. Reversed saphenous vein was anastomos ed to the ramus in end-to-side fashion with running 7-0 Prolene suture. Anastomosis was tested and was hemostatic. Reversed saphenous vein was anastomosed to the diagonal in end-to-side fashion with running 7-0 Prolene suture. A 1 mm probe passed and dilated the anastomosis. Anastomosis was test ed and was hemostatic. Mammary artery was brought through a window in the pericardium and anastomos ed to the distal LAD in end-to-side fashion with running 7-0 Prolene suture. Again, a 1 mm probe di lated the anastomosis. On release of the mammary clamp, there was good hooding in the anastomosis a nd good distal flow. Pedicle was secured with interrupted 6-0 Prolene suture. Cross-clamp was sameer samm and partial occluding clamp placed. Saphenous vein to the ramus was anastomosed to aortic root. The remainder of the grafts were anastomosed off the saphenous vein graft as there was no area on the ascending aorta for anymore bypasses to fit. Partial occluding clamp was removed and grafts nighat ired. Anastomoses were inspected for hemostasis, which was good. The patient was warmed and weaned from cardiopulmonary bypass. After resumption of sinus rhythm, good hemodynamics, and temperature greater than 36.5, bypass was discontinued. Transfusions were given. Protamine was administered. Decannulation was performed and pursestring sutures secured. Twenty-four Slovenian chest tubes were pl aced in the mediastinum. After adequate hemostasis had been obtained, the sternum was treated with vancomycin paste and closed with #7 wire. Sternum was treated with platelet-rich plasma and wires t wisted. Wounds were irrigated, treated with platelet-poor plasma, and closed in multiple layers. T he patient tolerated the procedure well, and was transferred to the intensive care unit in stable, b ut critical condition.
[2017-08-05 14:49] LABS: Modified Allen's Test NOT DONE; Oxyhemoglobin 93.3 % (94.0-97.0); Sodium 142 mmol/L (135-148); Vent YES
[2017-08-05 14:50] LABS: Mode CPAP
--- NOTE | 2017-08-05 15:35 | RAD ---
ONE VIEW CHEST: History: Status post open heart surgery. Comparison: 08-02-17, 08-04-17 FINDINGS: Portable supine chest demonstrates endotracheal tube, right sided central venous catheter and right sided chest tube. Normal cardiac silhouette. Sternotomy wires are identified. Minimal patchy interst itial opacities. No pneumothorax on the supine projection. No osseous abnormality. IMPRESSION: Findings compatible with recent open heart surgery. POS: JOVAN
--- NOTE | 2017-08-05 15:55 | PDOC.PN ---
- Subjective Encounter Start Date: 08/05/17 Encounter Start Time: 15:53 Pt seen for followup re: NSTEMI. Reports soreness at surgical site, reports L shoulder pain. No nausea. No fevers. - Objective Resuscitation Status: Resuscitation Status FULL:Full Resuscitation MAR Reviewed: Yes Vital Signs & Weight: Vital Signs (12 hours) Temp Pulse Resp BP BP Pulse Ox 08/05/17 14:00 19 08/05/17 12:37 91 146/77 H 08/05/17 12:32 97.8 F 19 08/05/17 04:00 97.8 F 81 18 117/62 94 L Weight Admit Weight 229 lb 8.019 oz Weight 220 lb 3.2 oz Most Recent Monitor Data Heart Rate from ECG 87 NIBP 96/42 NIBP BP-Mean 60 Respiration from ECG 19 SpO2 99 I&O: 08/04/17 08/05/17 08/06/17 06:59 06:59 06:59 Intake Total 1280 1076 Output Total 1275 1400 830 Balance 0 -198 -511 Result Diagrams: 08/05/17 12:44 08/05/17 12:44 Additional Labs: Accuchecks 08/05/17 08/05/17 08/05/17 11:31 11:01 09:47 POC Glucose 188 H 233 H 155 H 08/05/17 08/05/17 08/05/17 09:14 07:59 05:58 POC Glucose 148 H 126 H 114 H 08/04/17 08/04/17 21:08 16:59 POC Glucose 93 125 H EKG Reviewed by me: Yes (Tele: NSR) Phys Exam - Physical Examination Constitutional: NAD HEENT: moist MMs Neck: supple Respiratory: clear to auscultation bilateral Chest tube+ Cardiovascular: RRR Gastrointestinal: soft, non-tender, positive bowel sounds Musculoskeletal: pulses present Neurological: moves all 4 limbs Psychiatric: normal affect Skin: no rash Dx/Plan (1) NSTEMI (non-ST elevated myocardial infarction) Code(s): I21.4 - NON-ST ELEVATION (NSTEMI) MYOCARDIAL INFARCTION Status: Acute (2) S/P CABG x 5 Code(s): Z95.1 - PRESENCE OF AORTOCORONARY BYPASS GRAFT Status: Acute (3) DM2 (diabetes mellitus, type 2) Status: Chronic (4) Dyslipidemia Code(s): E78.5 - HYPERLIPIDEMIA, UNSPECIFIED Status: Chronic (5) Anxiety disorder Code(s): F41.9 - ANXIETY DISORDER, UNSPECIFIED Status: Chronic (6) BPH (benign prostatic hyperplasia) Code(s): N40.0 - BENIGN PROSTATIC HYPERPLASIA WITHOUT LOWER URINRY TRACT SYMP Status: Chronic - Plan * . Extubated today afternoon after CABG. Continue statin, aspirin. Continue insulin. Review of Systems - Review of Systems Respiratory: negative: Cough, Dry, Shortness of Breath, Hemoptysis, SOB with Excertion, Pleuritic Pain, Sputum, Wheezing Cardiovascular: Chest Pain. negative: Palpitations, Orthopnea, Paroxysmal Noc. Dyspnea, Edema, Light Headedness Gastrointestinal: negative: Nausea, Vomiting, Abdominal Pain, Diarrhea, Constipation, Melena, Hematochezia - Medications/Allergies Allergies/Adverse Reactions: Allergies Allergy/AdvReac Type Severity Reaction Status Date / Time No Known Drug Allergies Allergy Verified 08/03/17 05:28 Medications: Current Medications Acetaminophen (Tylenol) 650 mg PO Q6H PRN PRN Reason: Headache/Fever Or Mild Pain Hydrocodone Bitart/Acetaminophen ([place] 5/325) 1 tab PO Q4H PRN PRN Reason: Moderate Pain (4-6) Hydrocodone Bitart/Acetaminophen ([place] 5/325) 2 tab PO Q4H PRN PRN Reason: Severe Pain (7-10) Al Hydroxide/Mg Hydroxide (Maalox) 30 ml PO Q4H PRN PRN Reason: Indigestion Albumin Human (Albumin 5%) 12.5 gm IVPB Q6H PRN PRN Reason: To Maintain SBP> 90 mmHG Stop: 08/06/17 12:25 Albumin Human (Albumin 5%) 25 gm IVPB Q6H PRN PRN Reason: To Maintain SBP > 90 mmHG Stop: 08/06/17 12:25 Albuterol/Ipratropium (Duoneb) 3 ml NEB [id number] PRN PRN Reason: SHORTNESS OF BREATH Aspirin (Aspirin) 325 mg PO DAILY LAURA Bisacodyl (Dulcolax) 10 mg PO Q12H PRN PRN Reason: Constipation Bisacodyl (Dulcolax) [address] Q12H PRN PRN Reason: Constipation Cefazolin Sodium (Ancef) 2 gm SLOW IVP Q8HR LAURA Stop: 08/06/17 06:01 Last Admin: 08/05/17 13:07 Dose: 2 gm Dextrose/Water (Dextrose 50%) 25 gm SLOW IVP PRN PRN PRN Reason: PER HYPOGLYCEMIC PROTOCOL Famotidine (Pepcid) 20 mg SLOW IVP Q12HR [facility] Fentanyl (Sublimaze) 25 mcg SLOW IVP Q2H PRN PRN Reason: Moderate Pain (4-6) Stop: 08/07/17 12:17 Fentanyl (Sublimaze) 50 mcg SLOW IVP Q2H PRN PRN Reason: Severe Pain (7-10) Stop: 08/07/17 12:17 Last Admin: 08/05/17 13:02 Dose: 50 mcg Glucagon (Glucagon) 1 mg SC PRN PRN PRN Reason: PER HYPOGLYCEMIC PROTOCOL Guaifenesin/Dextromethorphan (Robitussin Dm) 15 ml PO Q4H PRN PRN Reason: Cough Hydralazine HCl (Apresoline) 10 mg SLOW IVP Q6H PRN PRN Reason: To Maintain SBP< 140mmHG Potassium Chloride/Dextrose/Sod Cl (D5 1/2 Ns W/20 Meq Kcl) 1,000 mls @ 40 mls/ hr IV .Q24H [facility] Last Admin: 08/05/17 13:07 Dose: 1,000 mls Hetastarch/Sodium Chloride (Hespan) 500 mls @ 0 mls/hr IVPB PRN PRN; As Directed PRN Reason: To Maintain SBP > 90mmHg Stop: 08/06/17 12:17 Norepinephrine Bitartrate (Levophed) 250 mls @ 0 mls/hr IVPB PRN PRN; Protocol ; Titrate PRN Reason: To maintain SBP > 90 mmHG Magnesium Sulfate 2 gm/ Device 100 mls @ 100 mls/hr IVPB QAM [facility] Stop: 08/07/17 09:59 Nitroglycerin/Dextrose (Nitroglycerin 50 Mg/250 Ml Bot) 250 mls @ 0 mls/hr IVPB PRN PRN; Protocol; Titrate PRN Reason: To Maintain SBP< 140mmHG Insulin Human Regular 100 (units/ Sodium Chloride) 101 mls @ 0 mls/hr IVPB INF LAURA; As Directed PRN Reason: Protocol Last Admin: 08/05/17 13:42 Dose: 101 mls Dextrose/Water (D5w) 1,000 mls @ 0 mls/hr IV INF PRN; As Directed PRN Reason: PRN HYPOGLYCEMIC PROTOCOL Insulin Human Regular (Humulin R) 0 units SC Q4H PRN; Protocol PRN Reason: POST OP SLIDING SCALE Ketorolac Tromethamine (Toradol) 30 mg IVP Q6HR LAURA Stop: 08/08/17 18:01 Morphine Sulfate (Morphine Sulfate) 2 mg SLOW IVP Q15MIN PRN PRN Reason: Severe Pain (7-10) Ondansetron HCl (Zofran) 4 mg IVP Q6H PRN PRN Reason: Nausea/Vomiting Potassium Chloride (Kcl) 20 meq IVPB PRN PRN PRN Reason: K level </= 4.0 Last Admin: 08/05/17 14:09 Dose: 20 meq Promethazine HCl (Phenergan) 6.25 mg IM Q4H PRN PRN Reason: Nausea/Vomiting Sodium Chloride (Flush - Normal Saline) 10 ml IVF PRN PRN PRN Reason: Saline Flush
[2017-08-05] MEDS: HYDROcodone/Acetaminophen 5/325 mg Tablet PO PRN ×2 (16:17→21:20)
[2017-08-05] MEDS: Ketorolac Tromethamine 30 MG/ML VIAL IVP SCH (17:08)
[2017-08-05 18:20] LABS: Hematocrit 44.4 % (42.0-52.0)
[2017-08-05] MEDS ORDERED: Famotidine/PF 20 mg/2ml Vial SLOW IVP SCH (21:00)
[2017-08-05] MEDS: Ondansetron HCl/PF 4 MG/2 ML Vial IVP PRN (21:03)
[2017-08-05] MEDS: Hetastarch 6% 500 ML 500 ML IVPB PRN (21:08)
--- NOTE | 2017-08-06 00:10 | CON ---
DATE OF CONSULTATION: 08/05/2017 HISTORY OF PRESENT ILLNESS: Mr. Kim is a pleasant 51-year-old male who underwent heart surgery t dharmesh. He had a BRIGHT to his LAD, saphenous vein to his posterolateral branch, saphenous vein to his diagonal, saphenous vein to his ramus and saphenous vein to his right coronary. He is currently being weaned per protocol. We are consulted because of his presence to the Critical Care Unit. PAST MEDICAL HISTORY: Remarkable for: 1. Diabetes only recently diagnosed. 2. Diverticulosis with diverticular perforation in the past, chronic surgery. 3. History of herniorrhaphy in the past. 4. History of benign prostatic hypertrophy. 5. History of nephrolithiasis. 6. History of lithotripsy. 7. History of colostomy that was reversed. 8. History of cystoscopy related to catheter-induced urethral trauma. SOCIAL HISTORY: He is a nonsmoker, nondrinker. 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 FAMILY HISTORY: There is family history of vascular disease. MEDICATIONS: Prior to admission, he was on metformin. PHYSICAL EXAMINATION: VITAL SIGNS: Blood pressure 82/39, heart rate in the 70s, respiratory rate in the teens. He is cur rently on weaning per protocol. HEENT: His pupils were equal. LUNGS: Clear. HEART: Regular rhythm. He is in sinus rhythm by monitor. ABDOMEN: Soft and nontender. EXTREMITIES: He moves all extremities. Without asymmetry. His feet were warm. LABORATORY DATA: White count 21.2, hemoglobin 15.8, platelets 138. Sodium 142, potassium 4, chlori de 114, bicarb 21, BUN 14, creatinine 0.7, glucose 175. Blood gas at 1425 7.47, CO2 22, pO2 61. Po stop chest radiograph shows tubes and lines in proper position. No infiltrates. IMPRESSION: Status post coronary bypass grafting, stable and weaning per protocol. We will follow while he is in the ICU.
[2017-08-06] MEDS: Ketorolac Tromethamine 30 MG/ML VIAL IVP SCH ×5 (00:17→23:23)
[2017-08-06 04:47] LABS: #Lymphocytes 1.4 thou/uL (1.20-3.40); #Monocytes 1.5 thou/uL (0.11-0.59); #Neutrophils 8.5 thou/uL (1.40-6.50); %Basophils 0.2 % (0.0-1.0); %Eosinophils 0.3 % (0.0-10.0); %Monocytes 12.8 % (0.0-10.0); Hematocrit 36.1 % (42.0-52.0); Mean Platelet Volume 7.7 fL (7.4-10.4); Red Blood Cell (RBC) Count 3.75 mill/uL (4.70-6.10); White Blood Cell (WBC) Count 11.4 thou/uL (4.8-10.8)
[2017-08-06 04:55] LABS: Anion Gap 6 mmol/L (10-20); BUN (Urea Nitrogen) 8 mg/dL (8.9-20.6); Calc. Creatinine Clearance 207 mL/min (70-130); Calcium 7.4 mg/dL (7.8-10.44); Carbon Dioxide 23 mmol/L (22-29); Chloride 112 mmol/L (98-107); Estimated GFR-MDRD Greater than 90
[2017-08-06] MEDS: HYDROcodone/Acetaminophen 5/325 mg Tablet PO PRN ×5 (05:17→20:43)
[2017-08-06] MEDS: Potassium Chloride 20 MEQ/100 ML PREMIX BAG IVPB PRN (05:49)
--- NOTE | 2017-08-06 08:17 | PDOC.CTH ---
<Janelle Dean - Last Filed: 08/06/17 08:18> Cardiology Progress Note - Subjective The pt was seen and examined. No overnight events. No cardiac complaints. Extubated yesterday afternoon. up to chair this AM. Complains of soreness at surgical site. - Objective Vital Signs Temp 08/06/17 03:00 97.8 F 08/05/17 23:00 98.8 F Admit Weight 229 lb 8.019 oz Weight 229 lb 15.074 oz 08/05/17 08/06/17 08/07/17 06:59 06:59 06:59 Intake Total 1076 2697.0 Output Total 1400 1668 75 Balance -324 1029.0 -75 - Physical Examination General/Neuro: alert & oriented x3 Neck: no JVD present Lungs: CTA (diminised at bases), other: Heart: RRR Abdomen: soft Extremities: other: (No edema; 2+ pulses) - Telemetry Telemetry Rhythm: SR 80-90s - Labs Result Diagrams: 08/06/17 04:05 08/06/17 04:05 Troponin/CKMB CK-MB (CK-2) 8.3 ng/mL (0-6.6) H* 08/03/17 03:14 Troponin I 0.993 ng/mL (< 0.028) H* 08/03/17 06:18 - Assessment/Plan 1. 3V CAD with s/p CABG x5 on 08/05/17 - stable; on ASA and Statin; Metoprolol is on hold due to hypotension 2. HTN - on Levaphed for hypotension 3. dyslipidemia - on Statin medication 4. DM type 2 - on ACHS BG check with Metformin BID 5. Anxiety - stable MAR reviewed Review of Systems - Review of Systems Constitutional: reports: no symptoms reported EENTM: reports: no symptoms reported Respiratory: reports: no symptoms reported Cardiac (ROS): reports: no symptoms reported ABD/GI: reports: no symptoms reported : reports: no symptoms reported Musculoskeletal: reports: no symptoms reported Skin: reports: see HPI <Matthew Samaniego - Last Filed: 08/06/17 21:57> Cardiology Progress Note - Objective Vital Signs Temp Pulse Resp Pulse Ox 08/06/17 19:26 98.4 F 110 H 22 H 94 L 08/06/17 19:00 98.7 F 08/06/17 15:00 98.4 F 08/06/17 12:00 98.2 F Admit Weight 229 lb 8.019 oz Weight 229 lb 15.074 oz 08/05/17 08/06/17 08/07/17 06:59 06:59 06:59 Intake Total 1076 2697.0 2047.2 Output Total 1400 1668 586 Balance -324 1029.0 1461.2 - Labs Result Diagrams: 08/06/17 04:05 08/06/17 04:05 Troponin/CKMB CK-MB (CK-2) 8.3 ng/mL (0-6.6) H* 08/03/17 03:14 Troponin I 0.993 ng/mL (< 0.028) H* 08/03/17 06:18 - Assessment/Plan Pt. was seen and evaluated. He is sitting up in the chair and denies cardiac complaints. I agree with the A/P by the CREATIVE SERVICES WRITER.
[2017-08-06] MEDS: Magnesium 2 GM/NS 0.9% 100 ML 2 GM in Premix Bag 1 BAG IVPB SCH (08:32)
[2017-08-06] MEDS: Atorvastatin Calcium 40 MG TAB PO SCH (08:34)
[2017-08-06] MEDS: Hetastarch 6% 500 ML 500 ML IVPB PRN (08:34)
[2017-08-06] MEDS: metFORMIN HCl XR 500 MG TAB PO SCH ×2 (08:34→18:07)
[2017-08-06] MEDS ORDERED: Aspirin 325 MG TAB PO SCH (09:00)
--- NOTE | 2017-08-06 09:22 | RAD ---
AP CHEST: Indication: Status post open heart surgery. Comparison: 08-05-17 FINDINGS: Since the comparison study, the patient has been extubated. The left sided thoracostomy catheter, ri ght subclavian central venous catheter, and midline sternotomy changes are similar. Cardiomegaly is slightly less prominent. There is improving pulmonary vascular congestion. There is persistent bibas ilar atelectasis. No pneumothorax is evident. IMPRESSION: 1. Interval extubation. 2. Bibasilar atelectasis. 3. No pneumothorax. 4. Stable left thoracostomy catheter and right subclavian central venous catheter. POS: [facility]
--- NOTE | 2017-08-06 11:15 | PDOC.PN ---
- Subjective Encounter Start Date: 08/06/17 Encounter Start Time: 10:00 Pt seen for followup re: NSTEMI. Reports he feels better. Did not sleep well. denies nausea or vomiting. - Objective Resuscitation Status: Resuscitation Status FULL:Full Resuscitation MAR Reviewed: Yes Vital Signs & Weight: Vital Signs (12 hours) Temp Pulse Resp Pulse Ox 08/06/17 08:00 97.8 F 94 23 H 94 L 08/06/17 03:00 97.8 F Weight Admit Weight 229 lb 8.019 oz Weight 229 lb 15.074 oz Most Recent Monitor Data Heart Rate from ECG 90 NIBP 82/38 NIBP BP-Mean 64 Respiration from ECG 29 SpO2 93 I&O: 08/05/17 08/06/17 08/07/17 06:59 06:59 06:59 Intake Total 1076 2697.0 740 Output Total 1400 1668 190 Balance -324 1029.0 550 Result Diagrams: 08/06/17 04:05 08/06/17 04:05 Additional Labs: Accuchecks 08/06/17 08/06/17 08/06/17 10:10 09:17 08:37 POC Glucose 186 H 130 H 119 H 08/06/17 08/06/17 08/06/17 07:31 05:54 05:22 POC Glucose 122 H 121 H 125 H 08/06/17 08/06/17 08/06/17 04:12 03:14 02:15 POC Glucose 124 H 121 H 127 H 08/06/17 08/06/17 08/05/17 00:58 00:14 23:02 POC Glucose 117 H 126 H 136 H 08/05/17 08/05/17 08/05/17 22:12 21:02 20:15 POC Glucose 139 H 126 H 119 H 08/05/17 08/05/17 08/05/17 19:12 18:09 17:14 POC Glucose 108 135 H 155 H 08/05/17 08/05/17 08/05/17 16:08 15:06 14:06 POC Glucose 136 H 161 H 154 H 08/05/17 08/05/17 12:44 11:31 POC Glucose 158 H 188 H EKG Reviewed by me: Yes (Tele: NSR) Phys Exam - Physical Examination Constitutional: NAD HEENT: moist MMs Neck: supple Respiratory: clear to auscultation bilateral Cardiovascular: RRR Gastrointestinal: soft Neurological: moves all 4 limbs Psychiatric: normal affect Skin: no rash Deviation from normal: surgical sites clean Dx/Plan (1) NSTEMI (non-ST elevated myocardial infarction) Code(s): I21.4 - NON-ST ELEVATION (NSTEMI) MYOCARDIAL INFARCTION Status: Acute (2) S/P CABG x 5 Code(s): Z95.1 - PRESENCE OF AORTOCORONARY BYPASS GRAFT Status: Acute (3) DM2 (diabetes mellitus, type 2) Status: Chronic (4) Dyslipidemia Code(s): E78.5 - HYPERLIPIDEMIA, UNSPECIFIED Status: Chronic (5) Anxiety disorder Code(s): F41.9 - ANXIETY DISORDER, UNSPECIFIED Status: Chronic (6) BPH (benign prostatic hyperplasia) Code(s): N40.0 - BENIGN PROSTATIC HYPERPLASIA WITHOUT LOWER URINRY TRACT SYMP Status: Chronic - Plan DVT proph w/SCDs * . Continue insulin. Monitor vital signs and titrate antihypertensives as needed. s/p CABGx5. Review of Systems - Review of Systems Constitutional: negative: Fever, Chills, Sweats, Weakness, Malaise Respiratory: negative: Cough, Dry, Shortness of Breath, Hemoptysis, SOB with Excertion, Pleuritic Pain, Sputum, Wheezing Cardiovascular: negative: Chest Pain, Palpitations, Orthopnea, Paroxysmal Noc. Dyspnea, Edema, Light Headedness - Medications/Allergies Allergies/Adverse Reactions: Allergies Allergy/AdvReac Type Severity Reaction Status Date / Time No Known Drug Allergies Allergy Verified 08/03/17 05:28 Medications: Current Medications Acetaminophen (Tylenol) 650 mg PO Q6H PRN PRN Reason: Headache/Fever Or Mild Pain Hydrocodone Bitart/Acetaminophen ([place] 5/325) 1 tab PO Q4H PRN PRN Reason: Moderate Pain (4-6) Last Admin: 08/06/17 10:16 Dose: 1 tab Hydrocodone Bitart/Acetaminophen ([place] 5/325) 2 tab PO Q4H PRN PRN Reason: Severe Pain (7-10) Last Admin: 08/06/17 05:17 Dose: 2 tab Al Hydroxide/Mg Hydroxide (Maalox) 30 ml PO Q4H PRN PRN Reason: Indigestion Albumin Human (Albumin 5%) 12.5 gm IVPB Q6H PRN PRN Reason: To Maintain SBP> 90 mmHG Stop: 08/06/17 12:25 Last Admin: 08/05/17 18:14 Dose: 12.5 gm Albumin Human (Albumin 5%) 25 gm IVPB Q6H PRN PRN Reason: To Maintain SBP > 90 mmHG Stop: 08/06/17 12:25 Last Admin: 08/06/17 00:17 Dose: 25 gm Albuterol/Ipratropium (Duoneb) 3 ml NEB [id number] PRN PRN Reason: SHORTNESS OF BREATH Aspirin (Aspirin) 325 mg PO DAILY [facility] Last Admin: 08/06/17 08:33 Dose: 325 mg Atorvastatin Calcium (Lipitor) 40 mg PO DAILY [facility] Last Admin: 08/06/17 08:34 Dose: 40 mg Bisacodyl (Dulcolax) 10 mg PO Q12H PRN PRN Reason: Constipation Bisacodyl (Dulcolax) [address] Q12H PRN PRN Reason: Constipation Dextrose/Water (Dextrose 50%) 25 gm SLOW IVP PRN PRN PRN Reason: PER HYPOGLYCEMIC PROTOCOL Fentanyl (Sublimaze) 25 mcg SLOW IVP Q2H PRN PRN Reason: Moderate Pain (4-6) Stop: 08/07/17 12:17 Fentanyl (Sublimaze) 50 mcg SLOW IVP Q2H PRN PRN Reason: Severe Pain (7-10) Stop: 08/07/17 12:17 Last Admin: 08/05/17 13:02 Dose: 50 mcg Glucagon (Glucagon) 1 mg SC PRN PRN PRN Reason: PER HYPOGLYCEMIC PROTOCOL Guaifenesin/Dextromethorphan (Robitussin Dm) 15 ml PO Q4H PRN PRN Reason: Cough Hydralazine HCl (Apresoline) 10 mg SLOW IVP Q6H PRN PRN Reason: To Maintain SBP< 140mmHG Hetastarch/Sodium Chloride (Hespan) 500 mls @ 0 mls/hr IVPB PRN PRN; As Directed PRN Reason: To Maintain SBP > 90mmHg Stop: 08/06/17 12:17 Last Admin: 08/06/17 08:34 Dose: 500 mls Magnesium Sulfate 2 gm/ Device 100 mls @ 100 mls/hr [place] [facility] [place]: 08/07/17 09:59 Last Admin: 08/06/17 08:32 Dose: 100 mls Nitroglycerin/Dextrose (Nitroglycerin 50 Mg/250 Ml Bot) 250 mls @ 0 mls/hr IVPB PRN PRN; Protocol; Titrate PRN Reason: To Maintain SBP< 140mmHG Dextrose/Water (D5w) 1,000 mls @ 0 mls/hr IV INF PRN; As Directed PRN Reason: PRN HYPOGLYCEMIC PROTOCOL Insulin Human Regular (Humulin R) 0 units SC Q4H PRN; Protocol PRN Reason: POST OP SLIDING SCALE Ketorolac Tromethamine (Toradol) 30 mg IVP Q6HR [facility] Stop: 08/08/17 18:01 Last Admin: 08/06/17 05:17 Dose: 30 mg Metformin HCl (Glucophage Xr) 500 mg PO BID-[facility] Last Admin: 08/06/17 08:34 Dose: 500 mg Morphine Sulfate (Morphine Sulfate) 2 mg SLOW IVP Q15MIN PRN PRN Reason: Severe Pain (7-10) Ondansetron HCl (Zofran) 4 mg IVP Q6H PRN PRN Reason: Nausea/Vomiting Last Admin: 08/05/17 21:03 Dose: 4 mg Potassium Chloride (Kcl) 20 meq IVPB PRN PRN PRN Reason: K level </= 4.0 Last Admin: 08/06/17 05:49 Dose: 20 meq Promethazine HCl (Phenergan) 6.25 mg IM Q4H PRN PRN Reason: Nausea/Vomiting Sodium Chloride (Flush - Normal Saline) 10 ml IVF PRN PRN PRN Reason: Saline Flush
[2017-08-06] MEDS ORDERED: INSULIN DETEMIR SC SCH (12:00)
[2017-08-06] MEDS ORDERED: PRE FILLED SC SCH (12:00)
[2017-08-06 14:16] LABS: Oxyhemoglobin 97.6 % (94.0-97.0); Sodium 140 mmol/L (135-148)
[2017-08-06 14:16] LABS: Oxyhemoglobin 97.7 % (94.0-97.0); Sodium 142 mmol/L (135-148)
[2017-08-06 14:24] LABS: Oxyhemoglobin 97.9 % (94.0-97.0); Sodium 140 mmol/L (135-148)
[2017-08-06 14:24] LABS: Base Excess -2.5 mEq/L (0 (+/- 2.5)); O2 Content (venous) 14.6 VOL% (12.5-17.5); pH (venous) 7.316 (7.35-7.45)
[2017-08-06 14:24] LABS: Oxyhemoglobin 97.9 % (94.0-97.0); Sodium 142 mmol/L (135-148)
[2017-08-06 14:24] LABS: Oxyhemoglobin 97.8 % (94.0-97.0); Sodium 141 mmol/L (135-148)
[2017-08-06 14:34] LABS: Mode OR ABG; Vent YES
[2017-08-06 14:35] LABS: Mode OR ABG; Vent YES
[2017-08-06 14:35] LABS: Mode OR ABG; Vent YES
[2017-08-06 14:37] LABS: Mode OR ABG; Vent YES
[2017-08-06 14:37] LABS: Mode OR ABG; Vent YES
--- NOTE | 2017-08-06 15:55 | PRG ---
DATE OF SERVICE: 08/06/2017 SUBJECTIVE: Mr. Kim has very few complaints today. He does not remember yesterday. PHYSICAL EXAMINATION: VITAL SIGNS: He is afebrile, blood pressure is 99/59. He has had several Plasma-Lyte boluses this morning, heart rate in the 70s-90s. His oximetry is in the mid 90s. LUNGS: Clear. HEART: Regular rhythm. ABDOMEN: Soft. LABORATORY DATA: White count 11.4, hemoglobin 12.3, it was 15 yesterday evening. Sodium 137, potas sium 3.7, chloride 112, bicarbonate 23, BUN 8, and creatinine 0.6. IMPRESSION AND PLAN: 1. Status post coronary artery bypass grafting. 2. Perioperative hypotension, at 51 years of age, I doubt he has adrenal insufficiency. His intake and output is positive 1029 coming into this morning and probably at least another couple of liters positive since then. He looks comfortable. We will continue with volume resuscitation as he stabi lizes.
[2017-08-06] MEDS: Ondansetron HCl/PF 4 MG/2 ML Vial IVP PRN (16:04)
[2017-08-07] MEDS: Ondansetron HCl/PF 4 MG/2 ML Vial IVP PRN (03:02)
[2017-08-07 05:05] LABS: Anion Gap 11 mmol/L (10-20); BUN (Urea Nitrogen) 15 mg/dL (8.9-20.6); Calc. Creatinine Clearance 198 mL/min (70-130); Calcium 7.9 mg/dL (7.8-10.44); Carbon Dioxide 23 mmol/L (22-29); Chloride 107 mmol/L (98-107); Estimated GFR-MDRD Greater than 90
[2017-08-07 05:27] LABS: #Lymphocytes 0.7 thou/uL (1.20-3.40); #Monocytes 1.2 thou/uL (0.11-0.59); #Neutrophils 8.8 thou/uL (1.40-6.50); %Basophils 0.1 % (0.0-1.0); %Eosinophils 0.3 % (0.0-10.0); %Lymphocytes 6.7 % (21.0-51.0); Hematocrit 36.1 % (42.0-52.0); Mean Platelet Volume 8.4 fL (7.4-10.4); Red Blood Cell (RBC) Count 3.68 mill/uL (4.70-6.10); White Blood Cell (WBC) Count 10.7 thou/uL (4.8-10.8)
[2017-08-07] MEDS: Ketorolac Tromethamine 30 MG/ML VIAL IVP SCH ×3 (06:16→17:20)
[2017-08-07] MEDS ORDERED: Artificial Tears 18 DROP/0.9 ML EA EYE PRN (07:18)
[2017-08-07] MEDS ORDERED: Guaifenesin DM 100-10/5 ML UDCUP PO PRN (07:18)
[2017-08-07] MEDS ORDERED: Bisacodyl 10 MG SUPP PR PRN (07:18)
[2017-08-07] MEDS ORDERED: Mineral Oil ENEMA PR PRN (07:18)
[2017-08-07] MEDS ORDERED: Bisacodyl 5 MG TAB PO PRN (07:18)
[2017-08-07] MEDS ORDERED: diphenhydrAMINE HCl 25 MG CAP PO PRN (07:18)
[2017-08-07] MEDS ORDERED: Nitroglycerin 0.4 MG TAB 1 EACH SL PRN (07:18)
[2017-08-07] MEDS ORDERED: Milk Of Magnesia 30 ML UDCUP PO PRN (07:18)
[2017-08-07] MEDS ORDERED: Zolpidem Tartrate 5 MG TAB PO PRN (07:18)
[2017-08-07] MEDS ORDERED: Mag-Al 1200 mg/1200 mg/30 ML UDCUP PO PRN (07:18)
[2017-08-07] MEDS: HYDROcodone/Acetaminophen 5/325 mg Tablet PO PRN ×4 (08:27→21:40)
[2017-08-07] MEDS: Atorvastatin Calcium 40 MG TAB PO SCH (08:27)
[2017-08-07] MEDS: metFORMIN HCl XR 500 MG TAB PO SCH ×2 (08:50→17:20)
--- NOTE | 2017-08-07 08:51 | RAD ---
PORTABLE CHEST 1 VIEW: DATE: 08/07/17. TIME: 4:01 a.m. HISTORY: Postop open-heart surgery. FINDINGS: There has been interval removal of the left-sided chest tube. Remainder of the exam is otherwise st able. POS: JOVAN
[2017-08-07] MEDS: Magnesium 2 GM/NS 0.9% 100 ML 2 GM in Premix Bag 1 BAG IVPB SCH (08:56)
[2017-08-07] MEDS ORDERED: Aspirin 325 mg Enteric Coated Tablet PO SCH (09:00)
--- NOTE | 2017-08-07 10:56 | PDOC.PN ---
- Subjective Encounter Start Date: 08/07/17 Encounter Start Time: 09:20 Pt seen for followup re; NSTEMI. Says he feels better. Denies chest pain, nausea, vomiting or diarrhea. - Objective Resuscitation Status: Resuscitation Status FULL:Full Resuscitation MAR Reviewed: Yes Vital Signs & Weight: Vital Signs (12 hours) Temp Pulse Resp BP Pulse Ox 08/07/17 09:50 97.7 F 86 18 95 08/07/17 08:48 97.7 F 86 18 99/57 L 95 08/07/17 08:00 97.7 F 86 18 95 08/07/17 07:18 94 L 08/07/17 07:00 98.5 F 08/07/17 03:00 98.4 F 08/06/17 23:00 98.1 F Weight Admit Weight 229 lb 8.019 oz Weight 234 lb 12.677 oz Most Recent Monitor Data Heart Rate from ECG 82 NIBP 101/62 NIBP BP-Mean 67 Respiration from ECG 23 SpO2 95 I&O: 08/06/17 08/07/17 08/08/17 06:59 06:59 06:59 Intake Total 2697.0 2327.2 240 Output Total 1668 806 60 Balance 1029.0 1521.2 180 Result Diagrams: 08/07/17 04:00 08/07/17 04:00 Additional Labs: Accuchecks 08/07/17 08/06/17 08/06/17 06:16 20:43 18:06 POC Glucose 150 H 168 H 113 H 08/06/17 08/06/17 12:11 11:02 POC Glucose 106 144 H EKG Reviewed by me: Yes (Tele: NSR) Phys Exam - Physical Examination Constitutional: NAD HEENT: moist MMs Neck: supple Respiratory: no wheezing, no rales, no rhonchi, clear to auscultation bilateral Cardiovascular: RRR, no rub Gastrointestinal: soft Neurological: moves all 4 limbs Psychiatric: normal affect Deviation from normal: surgical sites clean Dx/Plan (1) NSTEMI (non-ST elevated myocardial infarction) Code(s): I21.4 - NON-ST ELEVATION (NSTEMI) MYOCARDIAL INFARCTION Status: Acute (2) S/P CABG x 5 Code(s): Z95.1 - PRESENCE OF AORTOCORONARY BYPASS GRAFT Status: Acute (3) DM2 (diabetes mellitus, type 2) Status: Chronic (4) Dyslipidemia Code(s): E78.5 - HYPERLIPIDEMIA, UNSPECIFIED Status: Chronic (5) Anxiety disorder Code(s): F41.9 - ANXIETY DISORDER, UNSPECIFIED Status: Chronic (6) BPH (benign prostatic hyperplasia) Code(s): N40.0 - BENIGN PROSTATIC HYPERPLASIA WITHOUT LOWER URINRY TRACT SYMP Status: Chronic - Plan * . Continue aspirin and statin. BP still low, not on beta rachel. Continue accuchecks, insulin sliding scale, metformin. Review of Systems - Review of Systems Constitutional: negative: Fever, Chills, Sweats, Weakness, Malaise Respiratory: negative: Cough, Dry, Shortness of Breath, Hemoptysis, SOB with Excertion, Pleuritic Pain, Sputum, Wheezing Cardiovascular: negative: Chest Pain, Palpitations, Orthopnea, Paroxysmal Noc. Dyspnea, Edema, Light Headedness - Medications/Allergies Allergies/Adverse Reactions: Allergies Allergy/AdvReac Type Severity Reaction Status Date / Time No Known Drug Allergies Allergy Verified 08/03/17 05:28 Medications: Current Medications Acetaminophen (Tylenol) 650 mg PO Q6H PRN PRN Reason: Headache/Fever Or Mild Pain Hydrocodone Bitart/Acetaminophen ([place] 5/325) 1 tab PO Q4H PRN PRN Reason: Moderate Pain (4-6) Last Admin: 08/07/17 08:27 Dose: 1 tab Hydrocodone Bitart/Acetaminophen ([place] 5/325) 2 tab PO Q4H PRN PRN Reason: Severe Pain (7-10) Last Admin: 08/06/17 15:35 Dose: 2 tab Al Hydroxide/Mg Hydroxide (Maalox) 30 ml PO Q4H PRN PRN Reason: Indigestion Albuterol/Ipratropium (Duoneb) 3 ml NEB [id number] PRN PRN Reason: SHORTNESS OF BREATH Artificial Tears (Tears Naturale) 0 drop EA EYE PRN PRN PRN Reason: Dry Eyes Aspirin (Ecotrin) 325 mg PO DAILY [facility] Last Admin: 08/07/17 08:27 Dose: 325 mg Atorvastatin Calcium (Lipitor) 40 mg PO DAILY [facility] Last Admin: 08/07/17 08:27 Dose: 40 mg Bisacodyl (Dulcolax) 10 mg PO Q12H PRN PRN Reason: Constipation Bisacodyl (Dulcolax) 10 mg [place] Q12H PRN PRN Reason: Constipation Dextrose/Water (Dextrose 50%) 25 gm SLOW IVP PRN PRN PRN Reason: PER HYPOGLYCEMIC PROTOCOL Diphenhydramine HCl (Benadryl) 25 mg PO Q6H PRN PRN Reason: Itching & Insomnia or Drew Galdino Fentanyl (Sublimaze) 25 mcg SLOW IVP Q2H PRN PRN Reason: Moderate Pain (4-6) Stop: 08/07/17 12:17 Fentanyl (Sublimaze) 50 mcg SLOW IVP Q2H PRN PRN Reason: Severe Pain (7-10) Stop: 08/07/17 12:17 Last Admin: 08/05/17 13:02 Dose: 50 mcg Glucagon (Glucagon) 1 mg SC PRN PRN PRN Reason: PER HYPOGLYCEMIC PROTOCOL Guaifenesin/Dextromethorphan (Robitussin Dm) 15 ml PO Q4H PRN PRN Reason: Cough Hydralazine HCl (Apresoline) 10 mg SLOW IVP Q6H PRN PRN Reason: To Maintain SBP< 140mmHG Dextrose/Water (D5w) 1,000 mls @ 0 mls/hr IV INF PRN; As Directed PRN Reason: PRN HYPOGLYCEMIC PROTOCOL Insulin Human Regular (Humulin R) 0 units SC Q4H PRN; Protocol PRN Reason: POST OP SLIDING SCALE Last Admin: 08/06/17 20:44 Dose: 4 unit Ketorolac Tromethamine (Toradol) 30 mg IVP Q6HR [facility] Stop: 08/08/17 18:01 Last Admin: 08/07/17 06:16 Dose: 30 mg Magnesium Hydroxide (Milk Of Magnesium) 30 ml PO Q12H PRN PRN Reason: Constipation Metformin HCl (Glucophage Xr) 500 mg PO BID-[facility] Last Admin: 08/07/17 08:50 Dose: Not Given Mineral Oil (Fleet Mineral Oil) 133 ml [place] DAILYPRN PRN PRN Reason: Constipation Nitroglycerin (Nitrostat) 0.4 mg SL Q5MIN PRN PRN Reason: Chest Pain Ondansetron HCl (Zofran) 4 mg IVP Q6H PRN PRN Reason: Nausea/Vomiting Last Admin: 08/07/17 03:02 Dose: 4 mg Potassium Chloride (Kcl) 20 meq IVPB PRN PRN PRN Reason: K level </= 4.0 Last Admin: 08/06/17 05:49 Dose: 20 meq Sodium Chloride (Flush - Normal Saline) 10 ml IVF PRN PRN PRN Reason: Saline Flush Zolpidem Tartrate (Ambien) 5 mg PO HSPRN PRN PRN Reason: Insomnia
--- NOTE | 2017-08-07 13:47 | PDOC.CTH ---
<Janelle Dean - Last Filed: 08/07/17 13:45> Cardiology Progress Note - Subjective The pt was seen and examined. No overnight events. No cardiac complaints. Complains of discomfort at MSI due to the surgery. He has been up to chair several times/day without any cardiac complaints - Objective Vital Signs Temp Pulse Resp BP BP Pulse Ox 08/07/17 11:35 98.7 F 84 18 99/55 L 87 L 08/07/17 09:50 97.7 F 86 18 95 08/07/17 08:48 97.7 F 86 18 99/57 L 95 08/07/17 08:00 97.7 F 86 18 95 08/07/17 07:18 94 L 08/07/17 07:00 98.5 F 08/07/17 03:00 98.4 F Admit Weight 229 lb 8.019 oz Weight 234 lb 12.677 oz 08/06/17 08/07/17 08/08/17 06:59 06:59 06:59 Intake Total 2697.0 2327.2 240 Output Total 1668 806 60 Balance 1029.0 1521.2 180 - Physical Examination General/Neuro: alert & oriented x3 Neck: no JVD present Lungs: CTA Heart: RRR Abdomen: soft Extremities: other: (No edema; on TEDs) - Telemetry Telemetry Rhythm: SR - Labs Result Diagrams: 08/07/17 04:00 08/07/17 04:00 Troponin/CKMB CK-MB (CK-2) 8.3 ng/mL (0-6.6) H* 08/03/17 03:14 Troponin I 0.993 ng/mL (< 0.028) H* 08/03/17 06:18 - Assessment/Plan 1. 3V CAD with s/p CABG x5 on 08/05/17 - stable; on ASA and Statin; 2. HTN - Metoprolol is still on hold due to hypotension; cont. monitor 3. dyslipidemia - on Statin medication 4. DM type 2 - on ACHS BG check with Metformin BID 5. Anxiety - stable MAR reviewed Review of Systems - Review of Systems Constitutional: reports: no symptoms reported EENTM: reports: no symptoms reported Respiratory: reports: no symptoms reported Cardiac (ROS): reports: no symptoms reported ABD/GI: reports: no symptoms reported : reports: no symptoms reported Musculoskeletal: reports: no symptoms reported Skin: reports: no symptoms reported <Matthew Samaniego - Last Filed: 08/07/17 17:22> Cardiology Progress Note - Objective Vital Signs Temp Pulse Pulse Pulse Resp BP BP 08/07/17 15:34 98.1 F 90 18 08/07/17 14:05 90 104 H 113/70 115/68 08/07/17 11:35 98.7 F 84 18 08/07/17 09:50 97.7 F 86 18 08/07/17 09:26 96 90 93/58 L 114/60 08/07/17 08:48 97.7 F 86 18 08/07/17 08:00 97.7 F 86 18 08/07/17 07:18 08/07/17 07:00 98.5 F BP BP Pulse Ox Pulse Ox Pulse Ox 08/07/17 15:34 103/59 L 85 L 08/07/17 14:05 90 L 92 L 08/07/17 11:35 99/55 L 87 L 08/07/17 09:50 95 08/07/17 09:26 92 L 90 L 08/07/17 08:48 99/57 L 95 08/07/17 08:00 95 08/07/17 07:18 94 L 08/07/17 07:00 Admit Weight 229 lb 8.019 oz Weight 234 lb 12.677 oz 08/06/17 08/07/17 08/08/17 06:59 06:59 06:59 Intake Total 2697.0 2327.2 240 Output Total 1668 806 60 Balance 1029.0 1521.2 180 - Labs Result Diagrams: 08/07/17 04:00 08/07/17 04:00 Troponin/CKMB CK-MB (CK-2) 8.3 ng/mL (0-6.6) H* 08/03/17 03:14 Troponin I 0.993 ng/mL (< 0.028) H* 08/03/17 06:18 - Assessment/Plan Pt. seen and eval. He denies any cardiac comp[laints. He is hesitant to eat solid food as he has had an ileus in the past after surgery. He is positive about 3.5 liters in the last 2 days. The BP is on the low side. No significant edema. Willtry low dose diuretic in AM and start TRACEY-I and betablockers when the BP tolerates. I agree with the A/P by the POSTAL SUPPORT EMPLOYEE.
--- NOTE | 2017-08-07 17:14 | PRG ---
DATE OF SERVICE: 08/07/2017 SUBJECTIVE: Mr. Kim is transferred out of the Critical Care Unit. OBJECTIVE: VITAL SIGNS: He is afebrile, heart rate is 84, respiratory rate is 18, oximetry is 95 earlier, 87 l ater this morning on room air. He had no complaints. There is no change in his overall exam. IMPRESSION: Status post coronary bypass grafting, stable. Now, he is going to transferred out of [facility] Critical Care Unit. We will sign off.
[2017-08-08] MEDS: Ketorolac Tromethamine 30 MG/ML VIAL IVP SCH ×4 (00:54→17:03)
[2017-08-08 06:08] VITALS: BMI 34.7
[2017-08-08] MEDS ORDERED: Metolazone 5 MG TAB PO SCH (06:30)
[2017-08-08] MEDS: metFORMIN HCl XR 500 MG TAB PO SCH ×2 (09:02→17:04)
[2017-08-08] MEDS: Aspirin 81 mg Enteric Coated Tablet PO SCH (09:02)
[2017-08-08] MEDS: Atorvastatin Calcium 40 MG TAB PO SCH (09:03)
[2017-08-08] MEDS: Furosemide 20 MG TAB PO SCH (09:03)
[2017-08-08] MEDS: Clopidogrel Bisulfate 75 MG TAB PO SCH (09:03)
[2017-08-08] MEDS: HYDROcodone/Acetaminophen 5/325 mg Tablet PO PRN (09:03)
--- NOTE | 2017-08-08 10:44 | PDOC.CTH ---
<Janelle Dean - Last Filed: 08/08/17 10:44> Cardiology Progress Note - Subjective The pt was seen and examined. No overnight events. No cardiac complaints. The pt complains of intermittent discomfort in his Rt knee with movement. His HR up to 110s when he walked to bathroom. He denied any cardiac complaints with exercise. - Objective Vital Signs Temp Pulse Resp BP Pulse Ox 08/08/17 07:50 98.2 F 88 18 107/59 L 94 L 08/08/17 04:00 98.5 F 75 18 104/56 L 90 L Admit Weight 229 lb 8.019 oz Weight 235 lb 4.8 oz 08/07/17 08/08/17 08/09/17 06:59 06:59 06:59 Intake Total 2327.2 1510 Output Total 806 550 Balance 1521.2 960 - Physical Examination General/Neuro: alert & oriented x3 Neck: no JVD present Lungs: CTA (diminished at bases; IS volume rate was < 1000) Heart: RRR Abdomen: soft Extremities: other: (No edema) Other PE findings: Dry incisions at MSI and - Telemetry Telemetry Rhythm: SR 90-110s - Labs Result Diagrams: 08/07/17 04:00 08/07/17 04:00 Troponin/CKMB CK-MB (CK-2) 8.3 ng/mL (0-6.6) H* 08/03/17 03:14 Troponin I 0.993 ng/mL (< 0.028) H* 08/03/17 06:18 - Assessment/Plan 1. 3V CAD with s/p CABG x5 on 08/05/17 - stable; on ASA and Statin; 2. HTN - Start Coreg 3.125mg BID for BP and HR; cont. monitor 3. dyslipidemia - on Statin medication 4. DM type 2 - on ACHS BG check with Metformin BID 5. Anxiety - stable MAR reviewed *He is hesitant to eat solid food as he has had an ileus in the past after surgery. *He walked twice yesterday; Encourage to use IS q1h for pulmonary function; *He has been voiding after he received Metolazone this AM Review of Systems - Review of Systems Constitutional: reports: no symptoms reported EENTM: reports: no symptoms reported Respiratory: reports: no symptoms reported, see HPI Cardiac (ROS): reports: no symptoms reported ABD/GI: reports: other (pls see assessment and plan) Musculoskeletal: reports: see HPI <Matthew Samaniegoan - Last Filed: 08/08/17 13:54> Cardiology Progress Note - Objective Vital Signs Temp Pulse Pulse Pulse Resp BP BP 08/08/17 11:50 08/08/17 11:49 98.9 F 92 16 08/08/17 11:07 97.8 F 90 20 08/08/17 10:30 94 90 138/63 123/59 L 08/08/17 10:15 97.8 F 90 20 08/08/17 07:50 98.2 F 88 18 08/08/17 04:00 98.5 F 75 18 BP Pulse Ox Pulse Ox Pulse Ox 08/08/17 11:50 77/47 L 08/08/17 11:49 81/51 L 90 L 08/08/17 11:07 112/60 91 L 08/08/17 10:30 92 L 91 L 08/08/17 10:15 94 L 08/08/17 07:50 107/59 L 94 L 08/08/17 04:00 104/56 L 90 L Admit Weight 229 lb 8.019 oz Weight 235 lb 4.8 oz 08/07/17 08/08/17 08/09/17 06:59 06:59 06:59 Intake Total 2327.2 1510 Output Total 806 550 Balance 1521.2 960 - Labs Result Diagrams: 08/07/17 04:00 08/07/17 04:00 Troponin/CKMB CK-MB (CK-2) 8.3 ng/mL (0-6.6) H* 08/03/17 03:14 Troponin I 0.993 ng/mL (< 0.028) H* 08/03/17 06:18 - Assessment/Plan Pt . seen and eval. I agree with the A/P by the PE MANAGER.Started on Coreg today. Not yet given. The BP decreased today after lasix this AM.
[2017-08-08] MEDS ORDERED: Carvedilol 3.125 MG TAB PO SCH ×2 (11:15→17:00)
--- NOTE | 2017-08-08 13:48 | PDOC.PN ---
- Subjective Encounter Start Date: 08/08/17 Encounter Start Time: 07:40 Pt seen for followup re: NSTEMI. Says he feels better. No chest pain or shortness of breath. - Objective Resuscitation Status: Resuscitation Status FULL:Full Resuscitation MAR Reviewed: Yes Vital Signs & Weight: Vital Signs (12 hours) Temp Pulse Pulse Pulse Resp BP BP 08/08/17 11:07 97.8 F 90 20 08/08/17 10:30 94 90 138/63 123/59 L 08/08/17 10:15 97.8 F 90 20 08/08/17 07:50 98.2 F 88 18 08/08/17 04:00 98.5 F 75 18 BP Pulse Ox Pulse Ox Pulse Ox 08/08/17 11:07 112/60 91 L 08/08/17 10:30 92 L 91 L 08/08/17 10:15 94 L 08/08/17 07:50 107/59 L 94 L 08/08/17 04:00 104/56 L 90 L Weight Admit Weight 229 lb 8.019 oz Weight 235 lb 4.8 oz Most Recent Monitor Data Heart Rate from ECG 82 NIBP 101/62 NIBP BP-Mean 67 Respiration from ECG 23 SpO2 95 I&O: 08/07/17 08/08/17 08/09/17 06:59 06:59 06:59 Intake Total 2327.2 1510 Output Total 806 550 Balance 1521.2 960 Result Diagrams: 08/07/17 04:00 08/07/17 04:00 Additional Labs: Accuchecks 08/08/17 08/07/17 08/07/17 06:23 21:05 16:38 POC Glucose 148 H 180 H 128 H EKG Reviewed by me: Yes (Tele: NSR) Phys Exam - Physical Examination Constitutional: NAD HEENT: moist MMs Respiratory: clear to auscultation bilateral Cardiovascular: RRR Gastrointestinal: soft Neurological: moves all 4 limbs Psychiatric: normal affect, A&O x 3 Skin: no rash Dx/Plan (1) NSTEMI (non-ST elevated myocardial infarction) Code(s): I21.4 - NON-ST ELEVATION (NSTEMI) MYOCARDIAL INFARCTION Status: Acute (2) S/P CABG x 5 Code(s): Z95.1 - PRESENCE OF AORTOCORONARY BYPASS GRAFT Status: Acute (3) DM2 (diabetes mellitus, type 2) Status: Chronic (4) Dyslipidemia Code(s): E78.5 - HYPERLIPIDEMIA, UNSPECIFIED Status: Chronic (5) Anxiety disorder Code(s): F41.9 - ANXIETY DISORDER, UNSPECIFIED Status: Chronic (6) BPH (benign prostatic hyperplasia) Code(s): N40.0 - BENIGN PROSTATIC HYPERPLASIA WITHOUT LOWER URINRY TRACT SYMP Status: Chronic - Plan DVT proph w/SCDs * . Continue aspirin and statin. Continue insulin. s/p CABG. Cardiology/CV surgery following. likely home 2-3 days. Review of Systems - Review of Systems Cardiovascular: negative: Chest Pain, Palpitations, Orthopnea, Paroxysmal Noc. Dyspnea, Edema, Light Headedness Gastrointestinal: negative: Nausea, Vomiting, Abdominal Pain, Diarrhea, Constipation, Melena, Hematochezia - Medications/Allergies Allergies/Adverse Reactions: Allergies Allergy/AdvReac Type Severity Reaction Status Date / Time No Known Drug Allergies Allergy Verified 08/03/17 05:28 Medications: Current Medications Acetaminophen (Tylenol) 650 mg PO Q6H PRN PRN Reason: Headache/Fever Or Mild Pain Hydrocodone Bitart/Acetaminophen ([place] 5/325) 1 tab PO Q4H PRN PRN Reason: Moderate Pain (4-6) Last Admin: 08/07/17 13:14 Dose: 1 tab Hydrocodone Bitart/Acetaminophen ([place] 5/325) 2 tab PO Q4H PRN PRN Reason: Severe Pain (7-10) Last Admin: 08/08/17 09:03 Dose: 2 tab Al Hydroxide/Mg Hydroxide (Maalox) 30 ml PO Q4H PRN PRN Reason: Indigestion Albuterol/Ipratropium (Duoneb) 3 ml NEB Q9EB-SE PRN PRN Reason: SHORTNESS OF BREATH Artificial Tears (Tears Naturale) 0 drop EA EYE PRN PRN PRN Reason: Dry Eyes Aspirin (Ecotrin) 81 mg PO DAILY [facility] Last Admin: 08/08/17 09:02 Dose: 81 mg Atorvastatin Calcium (Lipitor) 40 mg PO DAILY [facility] Last Admin: 08/08/17 09:03 Dose: 40 mg Bisacodyl (Dulcolax) 10 mg PO Q12H PRN PRN Reason: Constipation Bisacodyl (Dulcolax) 10 mg [place] Q12H PRN PRN Reason: Constipation [facility] ([facility]) [facility] Clopidogrel Bisulfate (Plavix) 75 mg PO DAILY [facility] Last Admin: 08/08/17 09:03 Dose: 75 mg Dextrose/Water (Dextrose 50%) 25 gm SLOW IVP PRN PRN PRN Reason: PER HYPOGLYCEMIC PROTOCOL Diphenhydramine HCl (Benadryl) 25 mg PO Q6H PRN PRN Reason: Itching & Insomnia or Drew Galdino Furosemide (Lasix) 20 mg PO DAILY [facility] Last Admin: 08/08/17 09:03 Dose: 20 mg Glucagon (Glucagon) 1 mg SC PRN PRN PRN Reason: PER HYPOGLYCEMIC PROTOCOL Guaifenesin/Dextromethorphan (Robitussin Dm) 15 ml PO Q4H PRN PRN Reason: Cough Hydralazine HCl (Apresoline) 10 mg SLOW IVP Q6H PRN PRN Reason: To Maintain SBP< 140mmHG Dextrose/Water (D5w) 1,000 mls @ 0 mls/hr IV INF PRN; As Directed PRN Reason: PRN HYPOGLYCEMIC PROTOCOL Insulin Human Regular (Humulin R) 0 units SC Q4H PRN; Protocol PRN Reason: POST OP SLIDING SCALE Last Admin: 08/06/17 20:44 Dose: 4 unit Ketorolac Tromethamine (Toradol) 30 mg IVP Q6HR [facility] Stop: 08/08/17 18:01 Last Admin: 08/08/17 13:42 Dose: 30 mg Magnesium Hydroxide (Milk Of Magnesium) 30 ml PO Q12H PRN PRN Reason: Constipation Metformin HCl (Glucophage Xr) [facility] Last Admin: 08/08/17 09:02 Dose: 500 mg Mineral Oil (Fleet Mineral Oil) 133 ml KS DAILYPRN PRN PRN Reason: Constipation Nitroglycerin (Nitrostat) 0.4 mg SL Q5MIN PRN PRN Reason: Chest Pain Ondansetron HCl (Zofran) 4 mg IVP Q6H PRN PRN Reason: Nausea/Vomiting Last Admin: 08/07/17 03:02 Dose: 4 mg Potassium Chloride (Kcl) 20 meq IVPB PRN PRN PRN Reason: K level </= 4.0 Last Admin: 08/06/17 05:49 Dose: 20 meq Sodium Chloride (Flush - Normal Saline) 10 ml IVF PRN PRN PRN Reason: Saline Flush Last Admin: 08/08/17 13:44 Dose: 10 ml Zolpidem Tartrate (Ambien) 5 mg PO HSPRN PRN PRN Reason: Insomnia
[2017-08-08] MEDS: Carvedilol 3.125 MG TAB PO SCH (17:05)
[2017-08-08] MEDS: Ondansetron HCl/PF 4 MG/2 ML Vial IVP PRN (18:37)
[2017-08-09] MEDS: HYDROcodone/Acetaminophen 5/325 mg Tablet PO PRN (00:58)
[2017-08-09] MEDS: Ondansetron HCl/PF 4 MG/2 ML Vial IVP PRN ×2 (06:41→13:12)
[2017-08-09] MEDS: Carvedilol 3.125 MG TAB PO SCH ×2 (09:49→16:03)
[2017-08-09] MEDS: Furosemide 20 MG TAB PO SCH (09:50)
[2017-08-09] MEDS: Atorvastatin Calcium 40 MG TAB PO SCH (09:50)
[2017-08-09] MEDS: Aspirin 81 mg Enteric Coated Tablet PO SCH (09:50)
[2017-08-09] MEDS: Clopidogrel Bisulfate 75 MG TAB PO SCH (09:50)
[2017-08-09] MEDS: metFORMIN HCl XR 500 MG TAB PO SCH ×2 (09:50→16:03)
[2017-08-09] MEDS ORDERED: Calcium Carbonate 500 MG ChewTAB PO PRN (12:10)
[2017-08-09] MEDS ORDERED: cefTRIAXone\\ROCEPHIN 1 GM in Sodium Chloride 0.9% 100 ML IVPB SCH (12:15)
--- NOTE | 2017-08-09 12:23 | PDOC.PN ---
- Subjective Encounter Start Date: 08/09/17 Encounter Start Time: 12:21 c/o cough with greenish sputum no cp no sob very nauseus dry heeving no f/c - Objective Resuscitation Status: Resuscitation Status FULL:Full Resuscitation MAR Reviewed: Yes Vital Signs & Weight: Vital Signs (12 hours) Temp Pulse Resp BP Pulse Ox 08/09/17 08:00 99.4 F 93 17 94 L 08/09/17 07:47 99.4 F 93 17 119/68 94 L 08/09/17 04:00 98.3 F 93 18 126/79 95 08/09/17 00:51 93 L Weight Admit Weight 229 lb 8.019 oz Weight 230 lb 11.2 oz Most Recent Monitor Data Heart Rate from ECG 82 NIBP 101/62 NIBP BP-Mean 67 Respiration from ECG 23 SpO2 95 I&O: 08/08/17 08/09/17 08/10/17 06:59 06:59 06:59 Intake Total 1510 1920 Output Total 550 2130 Balance 960 -210 Result Diagrams: 08/07/17 04:00 08/07/17 04:00 Additional Labs: Accuchecks 08/09/17 08/09/17 08/08/17 11:06 05:50 20:22 POC Glucose 145 H 130 H 175 H 08/08/17 08/08/17 16:08 10:56 POC Glucose 142 H 169 H Phys Exam - Physical Examination Constitutional: NAD HEENT: PERRLA Neck: no nodes Respiratory: no rales Cardiovascular: no significant murmur Gastrointestinal: non-tender Musculoskeletal: no edema Neurological: moves all 4 limbs Psychiatric: A&O x 3 Deviation from normal: mid line surg incision on chest Dx/Plan (1) Acute bronchitis Code(s): J20.9 - ACUTE BRONCHITIS, UNSPECIFIED Status: Acute (2) NSTEMI (non-ST elevated myocardial infarction) Code(s): I21.4 - NON-ST ELEVATION (NSTEMI) MYOCARDIAL INFARCTION Status: Acute (3) S/P CABG x 5 Code(s): Z95.1 - PRESENCE OF AORTOCORONARY BYPASS GRAFT Status: Acute (4) BPH (benign prostatic hyperplasia) Code(s): N40.0 - BENIGN PROSTATIC HYPERPLASIA WITHOUT LOWER URINRY TRACT SYMP Status: Chronic (5) DM2 (diabetes mellitus, type 2) Status: Chronic (6) Dyslipidemia Code(s): E78.5 - HYPERLIPIDEMIA, UNSPECIFIED Status: Chronic (7) Nausea Code(s): R11.0 - NAUSEA Status: Acute - Plan * check cxr * ambulating well * start rocephin * tessalon prn for cough * pepcid for nausea * d/c in am if better * 3V CAD with s/p CABG x5 on 08/05/17 - stable; on ASA and Statin; * HTN - Start Coreg 3.125mg BID for BP and HR; cont. monitor * dyslipidemia - on Statin medication
[2017-08-09] MEDS: Benzonatate 100 MG CAP PO PRN (16:03)
--- NOTE | 2017-08-09 16:17 | DIS ---
DATE OF ADMISSION: 08/03/2017 DATE OF DISCHARGE: 08/09/2017 DIAGNOSES: 1. Coronary artery disease. 2. Diabetes mellitus. 3. BPH. 4. Anxiety. 5. Hypertension. 6. Hyperlipidemia. 7. History of diverticulitis. PROCEDURES: 1. Cardiac catheterization. 2. Coronary artery bypass grafting x5: A. Left internal mammary artery to LAD. B. Reversed saphenous vein to posterolateral. C. Reversed saphenous vein to right coronary. D. Reverse saphenous vein to diagonal. E. Reversed saphenous vein to ramus. DESCRIPTION OF HOSPITAL STAY: Mr. Kim was admitted with chest pain, underwent cardiac catheteriz ation revealing severe 3-vessel disease including left main stenosis. His EF at the time of ARYA in the operating room was approximately 20%. He underwent bypass without incident. Postoperatively, cody romero has had no rhythm disturbances. He is being discharged to home in good condition and follow up bassam kan in [address] Samaniego in a month. DISCHARGE MEDICATIONS: Include; 1. Aspirin 81 mg daily. 2. Plavix 75 mg daily. 3. Lipitor 40 mg every day. 4. Coreg 3.125 mg b.i.d. 5. Metformin 500 mg b.i.d. 6. Howell 5/325 1-2 q.6 h. p.r.n. pain.
--- NOTE | 2017-08-09 20:06 | RAD ---
RADIOGRAPH CHEST 2 VIEWS: Date: 08/09/2017 Time: 6:58 p.m. HISTORY: A 51-year-old male with cough. COMPARISON: One view study of 08/07/2017. FINDINGS: Sternotomy wires, cardiomegaly, left pleural effusion, and right subclavian central venous catheter are all again noted. There is moderate-sized air space opacity in the left lower lobe, which is unc hanged on the frontal view compared to the prior. There is subsegmental atelectasis at the right ba se. There is no interval change overall on the frontal view. No pneumothorax. No pulmonary edema. On the lateral view, there is air space density at posterior lower lobe. It is difficult to visua lized the posterior costophrenic angles. They may be mildly blunted. IMPRESSION: 1. Left pleural effusion. 2. Left lower lobe air space density. 3. Cardiomegaly. 4. Right subclavian central venous catheter. 5. No interval change compared to 08/07/2017. NAYELI [] POS: JOVAN
[2017-08-09] MEDS: Famotidine/PF 20 mg/2ml Vial SLOW IVP SCH (21:10)
[2017-08-10] MEDS: Benzonatate 100 MG CAP PO PRN (03:08)
[2017-08-10] MEDS: Ondansetron HCl/PF 4 MG/2 ML Vial IVP PRN (03:08)
[2017-08-10 03:14] VITALS: TEMP 98.3
[2017-08-10] MEDS: HYDROcodone/Acetaminophen 5/325 mg Tablet PO PRN (05:09)
[2017-08-10 06:23] LABS: #Eosinphils 0.1 thou/uL (0.0-0.7); #Lymphocytes 1.5 thou/uL (1.20-3.40); #Monocytes 1.2 thou/uL (0.11-0.59); #Neutrophils 7.3 thou/uL (1.40-6.50); %Basophils 0.3 % (0.0-1.0); %Eosinophils 0.6 % (0.0-10.0); %Lymphocytes 14.8 % (21.0-51.0); %Monocytes 12.3 % (0.0-10.0); Hematocrit 31.5 % (42.0-52.0); Mean Platelet Volume 7.7 fL (7.4-10.4); Red Blood Cell (RBC) Count 3.26 mill/uL (4.70-6.10); White Blood Cell (WBC) Count 10.1 thou/uL (4.8-10.8)
[2017-08-10 06:38] LABS: Anion Gap 10 mmol/L (10-20); BUN (Urea Nitrogen) 21 mg/dL (8.9-20.6); BUN/Creatinine Ratio 29.58; Calc. Creatinine Clearance 183 mL/min (70-130); Calcium 8.6 mg/dL (7.8-10.44); Carbon Dioxide 30 mmol/L (22-29); Chloride 97 mmol/L (98-107); Estimated GFR-MDRD Greater than 90; Phosphorus 2.6 mg/dL (2.3-4.7)
--- NOTE | 2017-08-10 08:10 | PDOC.PN ---
- Subjective Encounter Start Date: 08/10/17 Encounter Start Time: 08:09 Patient seen and examined. No new complaints. No overnight events - Objective Resuscitation Status: Resuscitation Status FULL:Full Resuscitation MAR Reviewed: Yes Vital Signs & Weight: Vital Signs (12 hours) Temp Pulse Resp BP BP Pulse Ox 08/10/17 05:08 91 20 116/60 08/10/17 03:12 98.3 F 99 20 94/57 L 92 L Weight Admit Weight 229 lb 8.019 oz Weight 226 lb 8 oz Most Recent Monitor Data Heart Rate from ECG 82 NIBP 101/62 NIBP BP-Mean 67 Respiration from ECG 23 SpO2 95 I&O: 08/09/17 08/10/17 08/11/17 06:59 06:59 06:59 Intake Total 1920 1224 Output Total 2130 1720 Balance -210 -496 Result Diagrams: 08/10/17 05:38 08/10/17 05:38 Additional Labs: Accuchecks 08/10/17 08/09/17 08/09/17 05:18 20:19 16:18 POC Glucose 140 H 142 H 136 H 08/09/17 11:06 POC Glucose 145 H Phys Exam - Physical Examination Constitutional: NAD HEENT: PERRLA Neck: no JVD Respiratory: no wheezing Cardiovascular: no significant murmur Gastrointestinal: non-tender Musculoskeletal: pulses present Neurological: moves all 4 limbs Psychiatric: A&O x 3 Dx/Plan (1) Acute bronchitis Code(s): J20.9 - ACUTE BRONCHITIS, UNSPECIFIED Status: Acute (2) NSTEMI (non-ST elevated myocardial infarction) Code(s): I21.4 - NON-ST ELEVATION (NSTEMI) MYOCARDIAL INFARCTION Status: Acute (3) S/P CABG x 5 Code(s): Z95.1 - PRESENCE OF AORTOCORONARY BYPASS GRAFT Status: Acute (4) BPH (benign prostatic hyperplasia) Code(s): N40.0 - BENIGN PROSTATIC HYPERPLASIA WITHOUT LOWER URINRY TRACT SYMP Status: Chronic (5) DM2 (diabetes mellitus, type 2) Status: Chronic (6) Dyslipidemia Code(s): E78.5 - HYPERLIPIDEMIA, UNSPECIFIED Status: Chronic (7) Nausea Code(s): R11.0 - NAUSEA Status: Acute - Plan * doing well * d/c on po levaquin * f/u with pcp, card, cvts
[2017-08-10] MEDS ORDERED: Potassium Chloride 20 MEQ TAB PO SCH (08:15)
[2017-08-10] MEDS: Aspirin 81 mg Enteric Coated Tablet PO SCH (08:29)
[2017-08-10] MEDS: Furosemide 20 MG TAB PO SCH (08:29)
[2017-08-10] MEDS: metFORMIN HCl XR 500 MG TAB PO SCH (08:30)
[2017-08-10] MEDS: Clopidogrel Bisulfate 75 MG TAB PO SCH (08:30)
[2017-08-10] MEDS: Carvedilol 3.125 MG TAB PO SCH (08:30)
[2017-08-10] MEDS: Famotidine/PF 20 mg/2ml Vial SLOW IVP SCH (08:30)
[2017-08-10] MEDS: Atorvastatin Calcium 40 MG TAB PO SCH (08:31)
[2017-08-10 10:47] VITALS: BP 119/67
== END 2017-08-10 11:34 | disposition home or self-care (01) | DRG 234 ==
LOC: ERS 01:58 → 2NO 04:17 → ERHOLD 04:32 → 2NO 04:58 → CCU 08-05 08:33 → 2NO 08-07 08:44
PROVIDERS: ADMIT Internal Medicine; ATTEND Internal Medicine
PROC: 4A023N7 Measurement of Cardiac Sampling and Pressure, Left Heart, Percutaneous Approach (ICD-10-PCS; 2017-08-04)
PROC: B2111ZZ Fluoroscopy of Multiple Coronary Arteries using Low Osmolar Contrast (ICD-10-PCS; 2017-08-04)
PROC: B2151ZZ Fluoroscopy of Left Heart using Low Osmolar Contrast (ICD-10-PCS; 2017-08-04)
PROC: 02100Z9 Bypass Coronary Artery, One Artery from Left Internal Mammary, Open Approach (ICD-10-PCS; principal; 2017-08-05)
PROC: 021309W Bypass Coronary Artery, Four or More Arteries from Aorta with Autologous Venous Tissue, Open Approach (ICD-10-PCS; 2017-08-05)
PROC: 06BQ4ZZ Excision of Left Saphenous Vein, Percutaneous Endoscopic Approach (ICD-10-PCS; 2017-08-05)
PROC: 06BP3ZZ Excision of Right Saphenous Vein, Percutaneous Approach (ICD-10-PCS; 2017-08-05)
PROC: 5A1221Z Performance of Cardiac Output, Continuous (ICD-10-PCS; 2017-08-05)
DX: I21.4 Non-ST elevation (NSTEMI) myocardial infarction (principal); Z68.34 Body mass index [BMI] 34.0-34.9, adult; I10 Essential (primary) hypertension; I25.10 Atherosclerotic heart disease of native coronary artery without angina pectoris; I95.81 Postprocedural hypotension; J20.9 Acute bronchitis, unspecified; E78.00 Pure hypercholesterolemia, unspecified; E11.9 Type 2 diabetes mellitus without complications; Z79.84 Long term (current) use of oral hypoglycemic drugs; E66.9 Obesity, unspecified; N40.0 Benign prostatic hyperplasia without lower urinary tract symptoms; Z82.49 Family history of ischemic heart disease and other diseases of the circulatory system; F41.9 Anxiety disorder, unspecified; Z90.49 Acquired absence of other specified parts of digestive tract
CPT/HCPCS: 36415; 36416; 36430; 71010; 71020; 80048; 80053; 80061; 80069; 82553; 82565; 82805; 84484; 85014; 85018; 85025; 85049; 85610; 85730; 86850; 86900; 86901; 88184; 88305; 93005; 93010; 93306; 93458; 93798; 94002; 94150; A4216; C1769; J0696; J1642; J1644; J1650; J1815; J1885; J2001; J2250; J2260; J2405; J2704; J3010; J3475; J3480; J7050; P9045; S0028